=== PATIENT | female | born 1990 | race Caucasian/White ===

== ENCOUNTER → 2024-08-05 15:12 | Outpatient (BNVA) | payer OTHER, SELFPAY | PROVIDERS: PCP Nurse Practitioner Family; Visit Provider Surgery ==

== ENCOUNTER 2024-08-21 08:12 | Outpatient (AMB) | payer OTHER, SELFPAY ==
--- NOTE | 2024-08-21 11:52 | A.OFFVIS_ITS ---
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 Allergies No Known Allergies Allergy (Verified 08/21/24 11:53) Medication List - Last Reconciled 08/21/24 by Tobi Curtis MD acetaminophen 1,000 mg PO Q6H PRN cyclobenzaprine 10 mg PO BEDTIME doxylamine succinate 25 mg PO BEDTIME PRN ibuprofen 800 mg PO Q8H medroxyprogesterone 10 mg PO DAILY metoprolol succinate ER 100 mg PO DAILY omeprazole 40 mg PO DAILY rizatriptan 5 mg PO Q2-4H PRN HPI 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: Details: Start time: 11.47am, End time: 12.32pm ?I spent 40 minutes speaking with the patient on the phone plus an additional 5 minutes reviewing and updating records for a total of 45 minutes HPI Comments Details: Previous weight loss efforts: RDs, [facility] program Wakes up: 7am, Sleeps: 8.30pm Breakfast: 8am ([employer] egg sandwich) Lunch: 12.30pm ([employer] shake) Dinner: 5.30pm (steak, vegetables, potatoes, rice) Snacks: 7pm (cookies, ice cream) Exercise: has home stationary bike Beverages: Coffee (12oz from [employer] with creamer), tea: none, soda: none (used to), juice: none, ETOH: none PFSH Medical History (Updated 08/21/24 @ 11:57 by Tobi Curtis MD) PCOS (polycystic ovarian syndrome) DJD (degenerative joint disease) Scoliosis Hypertension Migraines GERD (gastroesophageal reflux disease) Morbid obesity Surgical History (Updated 08/21/24 @ 11:57 by Tobi Curtis MD) Hx of dilation and curettage Hx of section Hx of spinal fusion Family History (Updated 08/05/24 @ 15:45 by Emma Hernandez CMA) Mother No problems noted. Father No problems noted. Social History (Updated 08/05/24 @ 15:45 by JAY JAY Holguin Alcohol intake: never Patient Tobacco Use Status: Never used Tobacco Telehealth Telehealth Telehealth Platform: Telephone Location of provider rendering services: practice address Location of patient: address on file Patient Identification confirmed using: Name, : Yes Telehealth method: voice only Patient verbally consented to treatment: Yes Patient verbally consented to billing insurance company: Yes Patient informed of any privacy concerns related to visit: Yes Minutes spent on Phone/Video with Pt.: 45 Assessment & Plan Assessment & Plan (1) Morbid obesity: Code(s): E66.01 - Morbid (severe) obesity due to excess calories Category: Medical Plan: 1.? Plan for lap sleeve gastrectomy. If diaphragmatic or ventral hernias are present at time of surgery, these will be repaired laparoscopically as well. I emphasized the importance of close follow-up, adherence to instructions and good communication. The surgery does not replace the need to change your lifestlyle which is the cause of the obesity problem. The surgery provides the motivation to try again to change your lifestyle, it reduces the appetite and make the transition to a better lifestyle easier and doubles the amount of weight you would lose compared to doing the lifestyle change without the surgery. You will need to be on a liquid diet with protein shakes for 2 weeks before surgery to maximize weight loss and boost your nutritional status to recover better from surgery and also for the first two weeks after surgery to let the stomach heal before we introduce other foods. After the first 2 weeks we will introduce protein bars and soft foods like scrambled eggs, cottage cheese and yogurt and after the 6th week will introduce meat, fish and cooked vegetables in small amounts. Over time you should be able to eat everything in small amounts. Side effects like nausea, vomiting, heartburn or abdominal pain are not common in the practice unless you are not following in the practice. This operation requires lifetime commitment to following in our practice and communication with me. You will much less weight and experience side effects if you don?t communicate or not following in the practice. Complications are rare and in our practice is about 1/10 of the national average. However, you can develop bleeding that may require transfusion (hasn?t happened for year in the practice), you may from complications (we did not have any deaths in the practice) and infections. Infections are usually a result of breakdown in communication or not understanding or following directions correctly. They are difficult to treat, they can happen during the first 6 weeks, they may require to be in the hospital for weeks or even months, not being able to eat by mouth and you may have drains and surgeries to try and correct the issue. Other risks and complications include possible conversion to an open procedure, leaks, small bowel obstruction, blood clots, cardiac, or pulmonary complications, as oysterman complications such as ulcers, insufficient weight loss and vitamin deficiencies. 2. You will receive a link of our software elza to generate an individualized nutritional and exercise plan specific for you. Please send me a screenshot of the plans you will generate Meal to include lean meat (beef, fish, pork, turkey, chicken), or yoruba yogurt, or egg whites, or beans with a salad with olive oil and fruits (berries, pears, apples, kiwi). Avoid salt, breads, potatoes, rice, pasta, desserts. ?3. If you choose shakes, each shake would be drunk slowly, like coffee in a period of 2 hours. ?4. If you choose bars, cut each bar in 4 pieces and eat each piece in 30min ?to make each bar last 2 hours. ?5. I emphasized the importance of measuring accurately the food portion and measure it when serving the food in plate ?6. The meal portions include a specific number of forks of meat and salad. You always eat the meat portion but you can replace up to half of salad/vegetables portion with rice, potatoes or pasta, or a fruit ?if you like. The less you do it the better weight loss will be. ?7. One full-size fork is what it can be scooped on the fork without falling aside and not what can be bit with the fork. Use regular forks like those you find in a typical restaurant. ?8.? Please buy the body composition scale we discussed and send me weight measurements as soon as possible and then once a week. Always include your diet and exercise plan. 9. The best choice would be to purchase a stationary bike, elliptical or treadmill at home that can track calories. Let me know if you do so I can give you an exercise plan. 9. The best exercise choice would be to use your treadmill at home that can track calories. You can create and exercise plan with the [employer] elza. ?10.?It is important of avoiding and for at least 18 months postoperatively and has been discussed at the infosession. ?11. Goal is to lose at least 1.5-2lbs per week ?12. Goal to lose 10% of your weight before surgery, which is about 33lbs. Ultimate weight goal: 300lbs before surgery 13. Please follow the diet plan exactly without any change. If you don't like something about the plan or you feel hungry you need to communicate with me so I can help you revise the plan. You should not change the plan yourself. 14. To be scheduled for EGD due to the history of sleeve gastrectomy and anemia. The possibility of biopsies was discussed. Patient needs to avoid use of NSAIDs and aspirin for 1 week prior to EGD. You must be on liquids only the day before your endoscopy. Risks of perforation and bleeding was discussed with the patient. This will be an outpatient procedure with IV sedation. Orders: Orders Insulin Today E28.2 - Polycystic ovarian syndrome, E66.01 - Morbid (severe) obesity due to excess calories, I10 - Essential (primary) hypertension, K21.9 - Gastro-esophageal reflux disease without esophagitis Hemoglobin A1c Today E28.2 - Polycystic ovarian syndrome, E66.01 - Morbid (severe) obesity due to excess calories, I10 - Essential (primary) hypertension, K21.9 - Gastro-esophageal reflux disease without esophagitis H Pylori Breath Test Today E28.2 - Polycystic ovarian syndrome, E66.01 - Morbid (severe) obesity due to excess calories, I10 - Essential (primary) hypertension, K21.9 - Gastro-esophageal reflux disease without esophagitis Complete Blood Count Auto Diff Today E28.2 - Polycystic ovarian syndrome, E66.01 - Morbid (severe) obesity due to excess calories, I10 - Essential (primary) hypertension, K21.9 - Gastro-esophageal reflux disease without esophagitis Lipid Panel Today E28.2 - Polycystic ovarian syndrome, E66.01 - Morbid (severe) obesity due to excess calories, I10 - Essential (primary) hypertension, K21.9 - Gastro-esophageal reflux disease without esophagitis IRON PROFILE Today E28.2 - Polycystic ovarian syndrome, E66.01 - Morbid (severe) obesity due to excess calories, I10 - Essential (primary) hypertension, K21.9 - Gastro-esophageal reflux disease without esophagitis Vitamin B12 and Folate Today E28.2 - Polycystic ovarian syndrome, E66.01 - Morbid (severe) obesity due to excess calories, I10 - Essential (primary) hypertension, K21.9 - Gastro-esophageal reflux disease without esophagitis C Reactive Protein Today E28.2 - Polycystic ovarian syndrome, E66.01 - Morbid (severe) obesity due to excess calories, I10 - Essential (primary) hypertension, K21.9 - Gastro-esophageal reflux disease without esophagitis Vitamin A Today E28.2 - Polycystic ovarian syndrome, E66.01 - Morbid (severe) obesity due to excess calories, I10 - Essential (primary) hypertension, K21.9 - Gastro-esophageal reflux disease without esophagitis TSH reflex Free T4 Today E28.2 - Polycystic ovarian syndrome, E66.01 - Morbid (severe) obesity due to excess calories, I10 - Essential (primary) hypertension, K21.9 - Gastro-esophageal reflux disease without esophagitis US abdomen comp w elastography Today E28.2 - Polycystic ovarian syndrome, E66.01 - Morbid (severe) obesity due to excess calories, I10 - Essential (primary) hypertension, K21.9 - Gastro-esophageal reflux disease without esophagitis XR chest 2V Today E28.2 - Polycystic ovarian syndrome, E66.01 - Morbid (severe) obesity due to excess calories, I10 - Essential (primary) hypertension, K21.9 - Gastro-esophageal reflux disease without esophagitis Comprehensive Met. Panel Today E28.2 - Polycystic ovarian syndrome, E66.01 - Morbid (severe) obesity due to excess calories, I10 - Essential (primary) hypertension, K21.9 - Gastro-esophageal reflux disease without esophagitis Zinc Today E28.2 - Polycystic ovarian syndrome, E66.01 - Morbid (severe) obesity due to excess calories, I10 - Essential (primary) hypertension, K21.9 - Gastro-esophageal reflux disease without esophagitis Vitamin B1 Today E28.2 - Polycystic ovarian syndrome, E66.01 - Morbid (severe) obesity due to excess calories, I10 - Essential (primary) hypertension, K21.9 - Gastro-esophageal reflux disease without esophagitis Ferritin Today E28.2 - Polycystic ovarian syndrome, E66.01 - Morbid (severe) obesity due to excess calories, I10 - Essential (primary) hypertension, K21.9 - Gastro-esophageal reflux disease without esophagitis Vitamin D 25-OH Total Today E28.2 - Polycystic ovarian syndrome, E66.01 - Morbid (severe) obesity due to excess calories, I10 - Essential (primary) hypertension, K21.9 - Gastro-esophageal reflux disease without esophagitis ECG 12 lead EKG Today E28.2 - Polycystic ovarian syndrome, E66.01 - Morbid (severe) obesity due to excess calories, I10 - Essential (primary) hypertension, K21.9 - Gastro-esophageal reflux disease without esophagitis FL upper GI w air Today E28.2 - Polycystic ovarian syndrome, E66.01 - Morbid (severe) obesity due to excess calories, I10 - Essential (primary) hypertension, K21.9 - Gastro-esophageal reflux disease without esophagitis Referrals Behavioral Health Referral E28.2 - Polycystic ovarian syndrome, E66.01 - Morbid (severe) obesity due to excess calories, I10 - Essential (primary) hypertension, K21.9 - Gastro-esophageal reflux disease without esophagitis Nutrition/Dietitian Referral E28.2 - Polycystic ovarian syndrome, E66.01 - Morbid (severe) obesity due to excess calories, I10 - Essential (primary) hypertension, K21.9 - Gastro-esophageal reflux disease without esophagitis
[2024-08-21 12:06] VITALS: BMI 49.1
== END 2024-08-21 12:33 | disposition home or self-care (01) ==
LOC: HO.HBS 08:12
PROVIDERS: PCP Nurse Practitioner Family; Visit Provider Surgery
DX: E66.01 Morbid (severe) obesity due to excess calories (principal)
CPT/HCPCS: 99204

== ENCOUNTER → 2024-08-21 08:12 | Outpatient (BNVA) | payer OTHER, SELFPAY | PROVIDERS: PCP Nurse Practitioner Family; Visit Provider Surgery ==

== ENCOUNTER 2024-08-24 08:18 | Outpatient (REF) | payer OTHER, SELFPAY ==
--- NOTE | ~2024-08-24 | XR_ITS ---
CLINICAL HISTORY: E66.01 - Morbid (severe) obesity due to excess calories 2 view chest x-ray Comparison: None provided Findings: The lungs are clear. Heart size is normal. Moderate scoliosis. A spinal fusion nereyda is present. There is no acute fracture. IMPRESSION: 1. No acute findings. This document has been electronically signed by: Ching Meza MD on 08/25/2024 14:47:06
--- NOTE | 2024-08-24 08:26 | ECG_ITS ---
Test Reason : MOR OBS Blood Pressure : */* mmHG Vent. Rate : 79 BPM Atrial Rate : 79 BPM P-R Int : 172 ms QRS Dur : 104 ms QT Int : 408 ms P-R-T Axes : 26 8 26 degrees QTcB Int : 467 ms Normal sinus rhythm Cannot rule out Inferior infarct , age undetermined Borderline ECG No previous ECGs available Referred By: Tobi Curtis Electronically Signed By: SHAVON SAMPSON
[2024-08-24 08:45] LABS: MANUAL DIFF FLAG NO
[2024-08-24 09:06] LABS: Basophils Percent Auto 0.1 % (0-2); Eosinophils Absolute Auto 0.1 X10*3/uL (0.0-0.4); Eosinophils Percent Auto 1.3 % (0-4); Hematocrit 39.7 % (37.0-47.0); Hemoglobin 12.3 g/dl (12.0-16.0); Imm Gran Abs Auto 0.02 X10*3/uL (0.00-0.03); Imm Gran Pct Auto 0.3 % (0.0-0.4); Lymphocytes Absolute Auto 1.8 X10*3/uL (1.2-4.9); Lymphocytes Percent Auto 26.3 % (20-40); Mean Corpuscular Hemoglobin 25.6 pg (27.0-33.0); Mean Corpuscular Volume 82.5 fL (80.0-98.0); Mean Platelet Volume 10.3 fL (9.4-12.3); Monocytes Absolute Auto 0.4 X10*3/uL (0.1-1.2); Monocytes Percent Auto 5.6 % (2-11); Neutrophils Absolute Auto 4.7 x10*3/uL (2.0-8.3); Neutrophils Percent Auto 66.4 % (45-73); Platelet Count 265 X10*3/uL (160-400); Red Blood Count 4.81 X10*6/uL (4.20-5.50)
[2024-08-24 09:17] LABS: Estimated Average Glucose 103 mg/dL; Hemoglobin A1c % 5.2 % (<6.0)
[2024-08-24 10:11] LABS: Alanine Aminotransferase 60 U/L (0-31); Albumin Level 4.6 g/dL (3.5-5.0); Alkaline Phosphatase 82 U/L (39-117); Anion Gap 12 (12-20); Aspartate Amino Transferase 33 U/L (5-31); Bilirubin Total 0.7 mg/dL (0.0-1.0); Blood Urea Nitrogen 16 mg/dL (9-16); C Reactive Protein 1.15 mg/dL (< or = 0.50); Calcium 9.3 mg/dL (8.4-10.2); Carbon Dioxide 24 mmol/L (22-29); Chloride 106 mmol/L (96-108); Cholesterol 170 mg/dL (<200); Estimated Glomerular Filt Rate > 60; Glucose Random 91 mg/dL (60-115); HDL Cholesterol 31 mg/dL (>40); Iron 107 mcg/dL (30-160); LDL Cholesterol Calculated 111 mg/dL (<100); Percent Iron Saturation 32 % (15-50); Potassium 4.3 mmol/L (3.3-5.1); Sodium 138 mmol/L (135-145); Total Iron Binding Capacity 332 mcg/dL (228-428); Total Protein 8.1 g/dL (6.5-8.0); Triglycerides 141 mg/dL (<150); Unsaturated Iron Binding 225 ug/dL
[2024-08-24 10:18] LABS: Folate 9.3 ng/mL (> or = 4.0); Vitamin B12 347 pg/mL (200-900)
[2024-08-24 10:25] LABS: Ferritin 48 ng/mL (10-122); TSH reflex Free T4 0.93 uIU/mL (0.32-4.0); Vitamin D 25-OH Total 17.5 ng/mL (>30)
[2024-08-24 11:02] LABS: Insulin 25 uU/mL (2-29)
[2024-08-27 04:49] LABS: Zinc 69 mcg/dL (60-130)
[2024-08-28 16:14] LABS: Vitamin B1 9 nmol/L (8-30)
[2024-08-29 17:33] LABS: Vitamin A 53 mcg/dL (38-98)
== END 2024-08-24 08:19 | disposition home or self-care (01) ==
LOC: HO.XRAY 08:18
PROVIDERS: PCP Nurse Practitioner Family; Visit Provider Surgery
DX: E66.01 Morbid (severe) obesity due to excess calories (principal); E28.2 Polycystic ovarian syndrome; I10 Essential (primary) hypertension; K21.9 Gastro-esophageal reflux disease without esophagitis
CPT/HCPCS: 36415; 71046; 80053; 80061; 82306; 82607; 82728; 82746; 83036; 83525; 83540; 84425; 84443; 84590; 84630; 85025; 86140; 93005

== ENCOUNTER → 2024-08-24 08:26 | Outpatient (BNV) | payer OTHER, SELFPAY | PROVIDERS: PCP Nurse Practitioner Family; Visit Provider Internal Medicine | DX: Z13.6 Encounter for screening for cardiovascular disorders (principal) | CPT/HCPCS: 93010 ==

== ENCOUNTER → 2024-08-24 08:43 | Outpatient (BNV) | payer OTHER, SELFPAY | PROVIDERS: PCP Nurse Practitioner Family; Visit Provider Radiology Diagnostic Radiology | DX: E66.01 Morbid (severe) obesity due to excess calories (principal) | CPT/HCPCS: 71046 ==

== ENCOUNTER 2024-09-03 11:56 | Day surgery (SDC) | payer OTHER, SELFPAY ==
[2024-09-01 15:18] VITALS: BMI 49.1
[2024-09-03 12:15] VITALS: BMI 46.5
[2024-09-03 12:20] LABS: UPreg QC Valid YES
[2024-09-03 12:23] VITALS: BP 151/94; PULSE 101; RESP 20; TEMP 36.1; O2SAT 100
[2024-09-03] MEDS: Lactated Ringers 1,000 ML 100 ML IVCONT (12:28)
--- NOTE | 2024-09-03 12:40 | HO.ANESPROP2 ---
Documented by User: Stacey Florez NP 09/01/24 13:09 HPI - Anesthesia Eval Consult details Narrative: 33yo F for Upper Endoscopy BMI 49 PMFSH Active Problems Active Problems: All Active Problems Abnormal EKG (Acute) Vitamin B12 deficiency (Acute) Vitamin D deficiency (Acute) PCOS (polycystic ovarian syndrome) (Acute) DJD (degenerative joint disease) (Acute) Scoliosis (Acute) Hypertension (Acute) Migraines (Acute) GERD (gastroesophageal reflux disease) (Acute) Morbid obesity (Acute) Past Medical History Medical History (Updated 08/29/24 @ 09:29 by Tobi Curtis MD) PCOS (polycystic ovarian syndrome) DJD (degenerative joint disease) Scoliosis Hypertension Migraines GERD (gastroesophageal reflux disease) Morbid obesity Family History Family History (Updated 08/05/24 @ 15:45 by Emma Hernandez CMA) Mother No problems noted. Father No problems noted. Surgical History Surgical History (Updated 08/21/24 @ 11:57 by Tobi Curtis MD) Hx of dilation and curettage Hx of section Hx of spinal fusion Social History Social History (Updated 08/05/24 @ 15:45 by Emma Hernandez CMA) Alcohol intake: never Patient Tobacco Use Status: Never used Tobacco Use of substances other than those prescribed or required for medical reasons: No Advance Directives: No Advance Directives Information Provided: Yes Meds Allergies Allergy/AdvReac Type Severity Reaction Status Date / Time No Known Allergies Allergy Verified 08/21/24 11:53 Home Medications ?Medication ?Instructions ?Recorded ?Confirmed ?Last Taken ?Type acetaminophen 500 mg/15 mL oral 1,000 mg PO Q6H PRN Pain 08/05/24 09/01/24 Unknown History liquid cyclobenzaprine 10 mg tablet 10 mg PO BEDTIME 08/05/24 09/01/24 Unknown History doxylamine succinate 25 mg tablet 25 mg PO BEDTIME PRN Insomnia 08/05/24 09/03/24 1 Day Ago History ~09/02/24 ibuprofen 800 mg tablet 800 mg PO Q8H 08/05/24 09/03/24 1 Month Ago History ~08/04/24 medroxyprogesterone 10 mg tablet 10 mg PO DAILY 08/05/24 09/01/24 Unknown History metoprolol succinate 100 mg 100 mg PO DAILY 08/05/24 09/03/24 1 Day Ago History tablet,extended release 24 hr ~09/02/24 omeprazole 40 mg capsule,delayed 40 mg PO DAILY 08/05/24 09/03/24 1 Day Ago History release ~09/02/24 rizatriptan 5 mg tablet 5 mg PO Q2-4H PRN Migraine Headache 08/05/24 09/01/24 Unknown History Assessment and Plan Assessment Anesthesia Assessment: Chart Reviewed Documented by User: Tanya Briceño DO 09/03/24 12:46 HPI - Anesthesia Eval Consult details Narrative: 33yo F for Upper Endoscopy BMI 46 PMFSH Past Medical History Medical History (Updated 08/29/24 @ 09:29 by Tobi Curtis MD) PCOS (polycystic ovarian syndrome) DJD (degenerative joint disease) Scoliosis Hypertension Migraines GERD (gastroesophageal reflux disease) Morbid obesity Family History Family History (Updated 08/05/24 @ 15:45 by Emma Hernandez CMA) Mother No problems noted. Father No problems noted. Family history of problems with anesthesia: No Surgical History Surgical History (Updated 08/21/24 @ 11:57 by Tobi Curtis MD) Hx of dilation and curettage Hx of section Hx of spinal fusion History of Problems with Anesthesia: No Social History Social History (Updated 08/05/24 @ 15:45 by Emma Hernandez CMA) Alcohol intake: never Patient Tobacco Use Status: Never used Tobacco Use of substances other than those prescribed or required for medical reasons: No Advance Directives: No Advance Directives Information Provided: Yes Meds Allergies Allergy/AdvReac Type Severity Reaction Status Date / Time No Known Allergies Allergy Verified 08/21/24 11:53 Home Medications ?Medication ?Instructions ?Recorded ?Confirmed ?Last Taken ?Type acetaminophen 500 mg/15 mL oral 1,000 mg PO Q6H PRN Pain 08/05/24 09/01/24 Unknown History liquid cyclobenzaprine 10 mg tablet 10 mg PO BEDTIME 08/05/24 09/01/24 Unknown History doxylamine succinate 25 mg tablet 25 mg PO BEDTIME PRN Insomnia 08/05/24 09/03/24 1 Day Ago History ~09/02/24 ibuprofen 800 mg tablet 800 mg PO Q8H 08/05/24 09/03/24 1 Month Ago History ~08/04/24 medroxyprogesterone 10 mg tablet 10 mg PO DAILY 08/05/24 09/01/24 Unknown History metoprolol succinate 100 mg 100 mg PO DAILY 08/05/24 09/03/24 1 Day Ago History tablet,extended release 24 hr ~09/02/24 omeprazole 40 mg capsule,delayed 40 mg PO DAILY 08/05/24 09/03/24 1 Day Ago History release ~09/02/24 rizatriptan 5 mg tablet 5 mg PO Q2-4H PRN Migraine Headache 08/05/24 09/01/24 Unknown History Exam Exam Date and Time: 09/03/24 1240 Height,Weight and Vital Signs: Height 5 ft 9 in Weight 142.8 kg Vital Signs Temperature 97 F 09/03/24 12:23 Pulse Rate 101 H 09/03/24 12:23 Respiratory Rate 20 09/03/24 12:23 Blood Pressure 151/94 H 09/03/24 12:23 Pulse Oximetry 100 09/03/24 12:23 Oxygen Delivery Method Room Air 09/03/24 12:23 Temperature 97 F 09/03/24 12:23 Pulse Rate 101 H 09/03/24 12:23 Respiratory Rate 20 09/03/24 12:23 Blood Pressure 151/94 H 09/03/24 12:23 Pulse Oximetry 100 09/03/24 12:23 Oxygen Delivery Method Room Air 09/03/24 12:23 Airway Mallampati Class: II TM Dist: <=3cm Neck ROM: Full Loose/Missing/Broken Teeth: No (patient denies any loose or broken teeth) Heart: S1S2 Lungs: CTAB Assessment and Plan Assessment Anesthesia Assessment: Anesthesia Plan Discussed and Chart Reviewed Final Anesthetic Review Family History of Problems with Anesthesia: No History of Problems with Anesthesia: No NPO: Yes ASA Class: III Final Preanesthetic Review: No Changes in Pt Med Stat, Meds/Allgs Chart Reviewed, Consent Obtained/Reviewed and Anes Risks/Benef Reviewed Patient Risk: Intermediate Procedure Risk: Low Anesthetic Plan Anesthetic Plan: MAC: and Agree w/ Assess. and Plan Disposition: Standard PACU
--- NOTE | 2024-09-03 13:36 | MHC.SHP ---
Pre-Procedural Eval Section A - 24 Hr Update-Section A only Date of Service: 09/03/24 The patient is an INPATIENT: No The patient has been examined within 24 hours of the surgical procedure. The History & Physical has been completed within 30 days and I have reviewed it.: Yes Section B - Complete if H&P > 30 days Chief Complaint: Morbid (severe) obesity due to excess calories Details of Present Illness: GERD Relevant Family History (Specify if Yes): No Relevant Social History: None Present Medications: None Medical History: No relevant PMH History of Previous Operations: No relevant previous surgery Allergies: Allergies Allergy/AdvReac Type Severity Reaction Status Date / Time No Known Allergies Allergy Verified 08/21/24 11:53 Review of Systems Sugical H&P ROS: Negative: Constitution, Cardiovascular, Respiratory, Neurological, Psychiatric, Hem-Onc, Allergic/Immunologic, Gastrointestinal, Genitourinary, Musculoskeletal, Integumentary, Endocrine and Eyes/Ears/Nose/Throat Exam Surgical H&P Exam: Normal: HEENT, Normal: Heart, Normal: Lungs, Normal: Extremities, Normal: Abdomen, Normal: Skin and Normal: Neurological Plan Diagnosis/Plan: Unchanged (EGD to assess etiology of GERD. Risks of bleeding and perforation were discussed with the patient and she is in agreement with the plan.) I have reviewed the history and physical and performed a pertinent physical examination on my patient. No changes have occurred unless specified. Time Spent With Patient Time: Total time managing care of this patient today ____ minutes.
--- NOTE | 2024-09-03 13:39 | PM.OP ---
Brief Operative Note Date of Service: 09/03/24 Pre-op diagnosis: GERD Post-op diagnosis: same Procedure: PROCEDURE DATE: 09/03/2024 PREOPERATIVE DIAGNOSIS: GERD POSTOPERATIVE DIAGNOSIS: ?Same as above. Small diaphragmatic hernia PROCEDURE: [id number] with biopsies Surgeon: Lena Curtis M.D.. Ph.D. Tire Regrooving Machine Operator: None ? Anesthesia: IV sedation Estimated blood loss: ?Minimal FINDINGS AND PROCEDURE: ? OPERATIVE INDICATIONS: ?The patient is a 33 year old male known to me who is interested in bariatric surgery. The patient has GERD symptoms. Based on this information I recommended an upper endoscopy to evaluate the patient's symptoms. Risks and complications of the surgery were discussed with the patient in advance particularly the possibility of perforation or bleeding that may require surgical intervention. The patient understood the risks and was in agreement with the plan. ? PROCEDURE: After informed consent was obtained by the patient, the patient was ?transferred to the Operating Room and was placed in the supine position.? After successful induction of IV sedation, a mouth block was inserted and the patient was placed in the left lateral decubitus position. An upper endoscopy was performed next, the oropharynx and esophagus appeared within the normal limits. There was a small 2cm hiatal hernia. The z-line was smooth.. Two biopsies were obtained from the distal esophagus 2-3 cm proximal to the GE junction and two additional biopsies from the GE junction. The stomach was entered and it appeared to be of normal size. There was no gastritis. There was no stricture or ulcer. A biopsy was obtained from the gastric fundus and the antrum. No significant bleeding was noted from any of the biopsy sites. Retroflexion of the scope confirmed a normal GE junction. The scope was then advanced into the duodenum which appeared to be normal as well. At that point the duodenum ?and the stomach were decompressed and the scope was withdrawn from the patient's mouth. The patient extubated and was transferred in stable condition to the Recovery Room for further care. I was present and performed all steps of the procedure. There were no residents to assist with this case. Teofilo Curtis M.D., Ph.D. Surgeon: Tobi Curtis MD Anesthesia: MAC Was an Tire Regrooving Machine Operator used for this Procedure?: No Estimated blood loss (mL): 0 IV fluids (mL): 400 Urine output (mL): 0 (No Sullivan to record output) Pathology: other (1) antrum x1, 2) fundus x1, 3) GE junction x2, 4) distal esophagus x2) Condition: stable Disposition: PACU
[2024-09-03 14:00] VITALS: BP 126/74; PULSE 123; RESP 16; TEMP 36.3; O2SAT 99
[2024-09-03 14:17] VITALS: BP 111/63; PULSE 95; RESP 18; TEMP 36.3; O2SAT 100
== END 2024-09-03 14:35 | disposition home or self-care (01) ==
PROVIDERS: Nurse Practitioner; PCP Nurse Practitioner Family; Visit Provider Surgery
PROC: 0DJ08ZZ Inspection of Upper Intestinal Tract, Via Natural or Artificial Opening Endoscopic (ICD-10-PCS; CPT 43235; principal; 2024-09-03 15:40)
DX: K21.9 Gastro-esophageal reflux disease without esophagitis (principal); E66.01 Morbid (severe) obesity due to excess calories; Z68.42 Body mass index [BMI] 45.0-49.9, adult; K44.9 Diaphragmatic hernia without obstruction or gangrene; I10 Essential (primary) hypertension; E28.2 Polycystic ovarian syndrome; G43.909 Migraine, unspecified, not intractable, without status migrainosus; M19.90 Unspecified osteoarthritis, unspecified site; M41.9 Scoliosis, unspecified; Z79.1 Long term (current) use of non-steroidal anti-inflammatories (NSAID); Z79.899 Other long term (current) drug therapy; Z98.1 Arthrodesis status
CPT/HCPCS: 43239; 81025; 88305; 88313; 88342; J2704

== ENCOUNTER → 2024-09-03 11:56 | Outpatient (BNV) | payer OTHER, SELFPAY | PROVIDERS: PCP Nurse Practitioner Family; Visit Provider Surgery | DX: K44.9 Diaphragmatic hernia without obstruction or gangrene (principal) | CPT/HCPCS: 43239 ==

== ENCOUNTER 2024-09-17 08:11 | Outpatient (AMB) | payer OTHER, SELFPAY ==
--- NOTE | 2024-09-17 08:05 | A.OFFWM_ITS ---
Intake Intake Visit Reasons: TV BH Intake Allergies No Known Allergies Allergy (Verified 10/21/24 11:10) PFSH Medical History (Updated 10/23/24 @ 00:01 by Background Justin) Asthma Arthritis Back pain PCOS (polycystic ovarian syndrome) DJD (degenerative joint disease) Scoliosis Hypertension Migraines GERD (gastroesophageal reflux disease) Morbid obesity Surgical History (Updated 10/23/24 @ 00:01 by Background Dacar) S/P gastric sleeve procedure History of esophagogastroduodenoscopy (EGD) Hx of dilation and curettage Hx of section Hx of spinal fusion Family History Mother No problems noted. Father No problems noted. Social History Household Members: Spouse Housing: Apartment Are you a primary summer child caregiver to a significant other at home: No Do you presently have visiting nurse or other home services: No Alcohol intake: never Patient Tobacco Use Status: Never used Tobacco Behavioral Health Assessment Weight Management Therapy Therapy Notes Details The patient is a 33-year-old self-referred female presenting for an initial visit to complete a behavioral health assessment as part of a surgical weight loss program. 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 She consumes three structured meals per day but struggles with portion control and frequently experiences persistent hunger. She denies emotional or stress-related eating in adulthood but does recall eating out of boredom during childhood. In her youth, she participated in nutrition classes and weekly group meetings at [facility]. She has a significant family history of obesity; both parents and her sister underwent gastric bypass surgery. Notably, her mother due to post-surgical malnutrition. In adulthood, the patient trialed Wegovy but discontinued it due to side effects. Over the past decade, her weight has ranged between 275 and 348 lbs. The patient denies any history of mental health treatment, psychiatric hospit alizations, or behavioral health crises. She also denies any current or past suicidal ideation, suicide attempts, self-harm, or thoughts of harm to others. There is no reported history of substance use. She reports no current symptoms of emotional or stress-related eating. Results from the Binge Eating Scale (BES) indicate a low risk for binge eating behaviors, and PHQ scores are within normal limits, suggesting no current symptoms of depression. The mental status exam is unremarkable and within normal limits, indicating intact functioning. At this time, the patient is cleared from a behavioral health perspective for participation in the surgical weight loss program. Presenting Concerns Referral Source WMP-Provider. Reason for referral Completion of behavioral health assessment as part of process for weight-loss surgery. Precipitating Event Obesity Living Situation Current Living Situation Rent At risk of losing current housing? No Satisfied with current living situation? Yes Comments PT lives with her and children. Food/Weight/Diet Expectations of change PT started the program on 08/21/2024 at 332Lbs and her most recent weight as of 09/12/2024 was 305Lbs. Goal to lose 10% of your weight before surgery, which is about 33lbs. Ultimate weight goal: 300lbs before surgery. PT doesn't have a weight goal but she wants to be able to play with her kids, lessen her back pain and have a healthier life. PT is implementing the following: Current meal plan: 4 fairlife shakes at day. Exercise plan: 400 noel x 6 days at week. Scale: yes. Communication w/ provider: Saturdays. History/Relationship with food The patient reports enjoying three structured meals per day but struggles with portion control and frequently feels hungry. She denies emotional or stress-related eating in adulthood, though she recalls eating out of boredom during childhood. Example of meals before starting the program: Breakfast: DD or [employer]. Breakfast sandwich w/ hasbrowns and cofee. Lunch: SKIP - would have Snack-type stuff. Example: Trailmix over the course of 2 hours Dinner: Homemeade. big normal dinner car/meat/veggie, pasta dishes. Snacks: after dinner ice cream, oreos. Drinks/Liquids: Coffee: 1 med coffee from [employer] (cream, favor shot). Soda: 1 can at day at dinner. Tea: none. Juice: none. Energy Drinks: none. Water: don't like plain water - 40oz w/ crystal light. History/Relationship with weight The patient reports being overweight since childhood and does not recall weighing under 200 lbs, likely not since before age 8. She has a significant family history of obesity; both parents and her sister underwent gastric bypass surgery. Her mother due to malnutrition postoperatively. Over the past 10 years, the patient?s weight has ranged from a low of 275 lbs to a high of 348 lbs. History/Relationship with dieting As a child, the patient participated in nutrition classes and weekly group meetings at [facility]. In adulthood, she attempted pharmacologic weight management with Wegovy but discontinued use due to side effects. Binge Eating Do you frequently eat large amounts of food in short periods of time, not feeling physically hungry? No Do you feel out of control when you eat a large amount of food in a short period of time? Yes Do you eat large amounts of food rapidly and typically alone? No Night Eating Do you wake up at least once during the night to eat? No If you wake up in the night, do you find that it is necessary to eat something in order to fall back asleep? No Do you have little or no appetite in the morning and feel very hungry in the evening, often overeating between dinner and when you go to bed? No Social History Family history and relationship PT is 13 years ago, they have 3 daughters and they're 2, 4 and 7. Her is disabled so he stays at home with the kids when she works and the oldest is at school. Her mother 2 years ago, father alive, she has 2 siblings. PT reports she is close to her sister. 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 Developmental history and status None reported. Currently [facility]. Social support , an aunt, a close friend. Community support None. Confucianist/Spirituality None. Cultural/Ethnic information White . Legal Involvement and History Current or historical involvement with the legal system? None reported. Education Highest grade completed HS. Some college. Preferred learning style Learn by doing Currently enrolled in educational program? No Interested in further educational program? No Educational Interests/Skills cooking, baking. 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 ) Wants help to find employment? No Meaningful activities Cooking. Financial Situation Describe current financial situation Comfortable and Occasional struggle Financial assistance? None Service Service? No Mental Health and Addiction Treatment Current/Past substance abuse? No Comments Alcohol: Rarely. Last time over 4 years. Cigarettes/Tobacco: None Cannabis/Edibles: None. Current/Past addictive behavior concerns? No Psychiatric history PT denies ever been in counseling, or any type of treatment such as crisis or inpatient. There is no history and/or current concern about SI/SA and self-harm or other harm. Medical and Physical Health Summary Additional Medical History not covered in history None reported Sexual History concerns None reported Physical exam in the last year? Yes Pain Screening Current pain? Yes Pain in the last few months? Yes Comments Daily pain on back due to scoliosis. She had a surgery. It varies from burning to aching pain. Usually worse by the end of the day. Medications Is the patient compliant with medications? Yes Does the patient have Bunch Guardian in place? Not applicable Does the patient use complimentary health approaches? No Trauma/Abuse History History of trauma? No Questionnaires PHQ-9 Over the last 2 weeks, how often have you been bothered by any of the following problems? 1. Little interest or pleasure in doing things: not at all 2. Feeling down, depressed, or hopeless: several days 3. Trouble falling or staying asleep, or sleeping too much: several days ( staying asleep) 4. Feeling tired or having little energy: more than half the days 5. Poor appetite or overeating: not at all 6. Feeling bad about yourself - or that you are a failure or have let yourself or your family down: not at all 7. Trouble concentrating on things, such as reading the newspaper or watching television: not at all 8. Moving or speaking so slowly that other people could have noticed. Or the opposite - being so fidgety or restless that you have been moving around a lot more than usual: not at all 9. Thoughts that you would be better off or of hurting yourself in some way: not at all Total score: 4 Depression Screening Interpretation: Negative (Previous score from 08/05/2024 was 14.) Depression Screening Done: Yes 50484 - PHQ-9 Billing: Yes Source: Developed by Drs. Carlyle L. ChachoSandy sesay, Tod Sunshine and colleagues, with an educational alexa from [employer]. Binge Eating Scale Group 1 A. I don't feel self-conscious about my wt. or body size when I'm with others. B. I feel concerned about how I look to others, but it normally does not make me fell disappointed with myself C. I do get self-conscious about my appearance and wt. which makes me feel disappointed in myself. D. I feel very self-conscious about my wt. and frequently I feel intense shame and disgust for myself. I try to avoid social contacts because of my self- consciousness. Response Group 1: D Group 2 A. I don't have any difficulty eating slowly in the proper manner. B. Although I seem to gobble down foods, I don't end up feeling stuffed because of eating to much. C. At times, I tend to eat quickly and then, I feel uncomfortably full afterwards. D. I have the habit of bolting down my food, without really chewing it. When this happens I usually feel uncomfortably stuffed because I've eaten to much. Response Group 2: A Group 3 A. I feel capable to control my eating urges when I want to. B. I feel like I have failed to control my eating more than the average person. C. I feel utterly helpless when it comes to feeling in control of my eating urges. D. Because I feel so helpless about controlling my eating I have become very desperate about trying to get control. Response Group 3: B Group 4 A. I don't have the habit of eating when I'm bored. B. I sometimes eat when I'm bored, but often I'm able to get busy and get my mind off food. C. I have a regular habit of eating when I'm bored, but occasionally, I can use some other activity to get my mind off eating. D. I have a strong habit of eating when I'm bored. Nothing seems to help me breath the habit. Response Group 4: A Group 5 A. I'm usually physically hungry when I eat something. B. Occasionally, I eat something on impulse even though I really am not hungry. C. I have the regular habit of eating foods, that I might not really enjoy, to satisfy a hungry feeling even though physically, I don't need the food. D. Although I'm not physically hungry, I get a hungry feeling in my mouth that only seems to be satisfied when I eat a food, like sandwich, that fills my mouth. Sometimes, when I eat the food to satisfy my mouth hunger, I then spit the food out so I won't gain weight. Response Group 5: A Group 6 A. I don't feel any guilt or self-hate after I overeat. B. After I overeat, occasionally I feel guilt or self-hate. C. Almost all the time I experience strong guilt or self-hate after I overeat. Response Group 6: B Group 7 A. I don't lose total control of my eating when dieting even after periods when I overeat. B. Sometimes when I eat a forbidden food on a diet, I feel like I blew it and eat even more. C. Frequently, I have the habit of saying to myself, I've blown it now, why not go all the way, when I overeat on a diet. When that happens I eat more. D. I have a regular habit of starting a strict diets for myself but I break the diets by going on an eating binge. My life seems to be either a feast or famine. Response Group 7: C Group 8 A. I rarely eat so much food that I feel uncomfortably stuffed afterwards. B. Usually about once a month, I each such a quantity of food, I end up feeling very stuffed. C. I have regular periods during the month when I eat large amounts of food, either at mealtime or at snacks. D. I eat so much food that I regularly feel quite uncomfortable after eating and sometimes a bit nauseous. Response Group 8: C Group 9 A. My level of calorie intake does not go up very high or go down very low on a regular basis. B. Sometimes after I overeat, I will try to reduce my caloric intake to almost nothing to compensate for the excess calories I've eaten. C. I have a regular habit of overeating during the night. It seems that my routine is not to be hungry in the morning but overeat in the evening. D. In my adult years, I have had week-long periods where I practically starve myself. This follows periods when I overeat. It seems I live a life of either feast or famine. Response Group 9: D Group 10 A. I usually am able to stop eating when I want to. I know when enough is enough. B. Every so often, I experience a compulsion to eat which I can't seem to control. C. Frequently, I experience strong urges to eat which I seem unable to control, but at other times I can control my eating urges. D. I feel incapable of controlling urges to eat. I have a fear of not being able to stop eating voluntarily. Response Group 10: C Group 11 A. I don't have any problem stopping eating when I feel full. B. I usually can stop eating when I feel full but occasionally overeat leaving me feeling uncomfortably stuffed. C. I have a problem stopping eating once I start and usually I feel uncomfortably stuffed after I eat a meal. D. Because I have a problem not being able to stop eating when I want, I sometimes have to induce vomiting to relieve my stuffed feeling. Response Group 11: B Group 12 A. I seem to eat just as much when I'm with others, Family social gatherings as when I'm by myself. B. Sometimes, when I'm with other persons, I don't eat as much as I want to eat because I'm self-conscious about my eating. C. Frequently, I eat only a small amount of food when others are present, because I'm very embarrassed about my eating. D. I feel so ashamed about overeating that I pick times to overeat when I know no one will see me. I feel like a closet eater. Response Group 12: C Group 13 A. I eat three meals a day with only an occasional between meal snack. B. I eat 3 meals a day, but I also normally snack between meals. C. When I am snacking heavily, I get in the habit of skipping regular meals. D. There are regular periods when I seem to be continually eating, with no planned meals. Response Group 13: A Group 14 A. I don't think much about trying to control unwanted eating urges. B. At least some of the time, I feel my thoughts are pre-occupied with trying to control my eating urges. C. I feel that frequently I spend much time thinking about how much I ate or about trying not to eat anymore. D. It seems to me that most of my waking hours are pre-occupied by thoughts about eating or not eating. I feel like I'm constantly struggling not to eat. Response Group 14: C Group 15 A. I don't think about food a great deal. B. I have strong craving for food but they last only for brief periods of time. C. I have days when I can't seem to think about anything else but food. D. Most of my days seem to be pre-occupied with thoughts about food. I feel like I live to eat. Response Group 15: C Group 16 A. I usually know whether or not I'm physically hungry. I take the right portion of food to satisfy me. B. Occasionally, I feel uncertain about knowing whether or not I'm physically hungry. A these times it's hard to know how much food I should take to satisfy m e. C. Even though I might know how many calories I should eat, I don't have any idea what is a normal amount of food for me. Response Group 16: B Binge Eating Score: 22 Score less than 17 Minimal Risk Score between 18-26 Moderate Risk Score between 27-46 High Risk Assessment & Plan Assessment & Plan (1) Adjustment disorder: Code(s): F43.20 - Adjustment disorder, unspecified (2) Pre-bariatric surgery psychological evaluation: Code(s): Z71.89 - Other specified counseling Plan The patient has been cleared from a behavioral health standpoint and can be submitted for insurance approval when ready. A follow-up behavioral health visit will be scheduled 1?4 weeks postoperatively to assess psychological adjustment and screen for any concerns. Next appointment: 1-4 Weeks Post-op. Telehealth Telehealth Telehealth Platform: [facility] Location of provider rendering services: other (Home office. [place], [place]) Location of patient: address on file Patient Identification confirmed using: Name, : Yes Telehealth method: voice only Patient verbally consented to treatment: Yes Patient verbally consented to billing insurance company: Yes Patient informed of any privacy concerns related to visit: Yes Minutes spent on Phone/Video with Pt.: 61 Coding Level of Care Code New Pt Tele Psy Diag Eval (90862) Patient Type New Diagnoses Adjustment disorder F43.20 Pre-bariatric surgery psychological evaluation Z71.89 Additional Codes PHQ-9 - 28840 - PHQ-9 Billing: Yes ([id number]) Time Spent (min) 61
== END 2024-09-17 09:16 | disposition home or self-care (01) ==
LOC: HO.HBST 08:11
PROVIDERS: PCP Nurse Practitioner Family; Visit Provider Counselor Mental Health
DX: F43.20 Adjustment disorder, unspecified (principal); Z71.89 Other specified counseling
CPT/HCPCS: 90837

== ENCOUNTER 2024-10-05 08:16 | Outpatient (AMB) | payer OTHER, SELFPAY ==
--- NOTE | 2024-10-04 23:12 | MHC.OFFVISWM ---
VS Expanded 10/04/24 23:23 Height 5 ft 9 in Weight 293 lb 4 oz BMI 43.3 Body Fat % 56.9 Body Fat Mass 166.9 Fat Free Mass 126.5 Visceral Fat Rating 23 Body Water % 29.6 Body Water Mass 86.8 Basal Metabolic Rate/Score 1,610 Intake Visit Reasons: TV Pre Op LSG 10/14/24 Allergies No Known Allergies Allergy (Verified 10/04/24 23:24) Medication List - Last Reconciled 10/04/24 by Tobi Curtis MD acetaminophen 1,000 mg PO Q6H PRN cholecalciferol (vitamin D3) 125 mcg PO DAILY cyclobenzaprine 10 mg PO BEDTIME doxylamine succinate 25 mg PO BEDTIME PRN ibuprofen 800 mg PO Q8H mecobalamin (vitamin B12) 1,000 mcg sublingual DAILY medroxyprogesterone 10 mg PO DAILY metoprolol succinate ER 100 mg PO DAILY omeprazole 40 mg PO DAILY ondansetron 4 mg PO Q12H pantoprazole 40 mg PO DAILY polyethylene glycol 3350 17 grams PO DAILY rizatriptan 5 mg PO Q2-4H PRN sucralfate 10 mL PO BID HPI HPI TV Pre Op LSG 10/14/24: Details: Start time: 10.00am, End time: 10.30am I spent 25 minutes speaking with the patient on the phone plus an additional 5 minutes reviewing and updating records for a total of 30 minutes HPI Comments Details: Overall weight loss: 39lbs, or 11.7% TBWL Is doing 2 Fairlife premade shakes and 3.5 Pure protein bars Exercise: bike for 333 noel x6/week [facility] Medical History (Updated 08/29/24 @ 09:29 by Tobi Curtis MD) PCOS (polycystic ovarian syndrome) DJD (degenerative joint disease) Scoliosis Hypertension Migraines GERD (gastroesophageal reflux disease) Morbid obesity Surgical History (Updated 10/02/24 @ 09:28 by Chitra Edward RN) History of esophagogastroduodenoscopy (EGD) Hx of dilation and curettage Hx of section Hx of spinal fusion Family History (Updated 08/05/24 @ 15:45 by Emma Hernandez CMA) Mother No problems noted. Father No problems noted. Social History (Updated 08/05/24 @ 15:45 by Emma Colon, PHYSICAL EDUCATION INSTRUCTOR) Alcohol intake: never Patient Tobacco Use Status: Never used Tobacco Physical Exam Vital Signs: BMI result Body Mass Index 43.3 Telehealth Telehealth Telehealth Platform: Telephone Location of provider rendering services: practice address Location of patient: address on file Patient Identification confirmed using: Name, : Yes Telehealth method: voice only Patient verbally consented to treatment: Yes Patient verbally consented to billing insurance company: Yes Patient informed of any privacy concerns related to visit: Yes Minutes spent on Phone/Video with Pt.: 30 Assessment & Plan Assessment & Plan (1) Morbid obesity: Code(s): E66.01 - Morbid (severe) obesity due to excess calories Category: Medical Plan: 1. Plan for lap sleeve gastrectomy including upper GI endoscopy. All tests has been completed and reviewed and the patient is cleared for the surgery. If diaphragmatic or ventral hernias are present at time of surgery, these will be repaired laparoscopically as well. The surgery does not replace the need to change your lifestlyle which is the cause of the obesity problem. The surgery provides the motivation to try again to change your lifestyle, it reduces the appetite and make the transition to a better lifestyle easier and doubles the amount of weight you would lose compared to doing the lifestyle change without the surgery. You will need to be on a liquid diet with protein shakes for 2 weeks before surgery to maximize weight loss and boost your nutritional status to recover better from surgery and also for the first two weeks after surgery to let the stomach heal before we introduce other foods. After the first 2 weeks we will introduce protein bars and soft foods like scrambled eggs, cottage cheese and yogurt and after the 6th week will introduce meat, fish and cooked vegetables in small amounts. Over time you should be able to eat everything in small amounts. Side effects like nausea, vomiting, heartburn or abdominal pain are not common in the practice unless you are not following in the practice. This operation requires lifetime commitment to following in our practice and communication with me. You will much less weight and experience side effects if you don?t communicate or not following in the practice. Complications are rare and in our practice is about 1/10 of the national average. However, you can develop bleeding that may require transfusion (hasn?t happened for year in the practice), you may from complications (we did not have any deaths in the practice) and infections. Infections are usually a result of breakdown in communication or not understanding or following directions correctly. They are difficult to treat, they can happen during the first 6 weeks, they may require to be in the hospital for weeks or even months, not being able to eat by mouth and you may have drains and surgeries to try and correct the issue. Other risks and complications include possible conversion to an open procedure, leaks, small bowel obstruction, blood clots, cardiac, or pulmonary complications, as halfway complications such as ulcers, insufficient weight loss and vitamin deficiencies. So far she has proven to be an excellent communicator and very compliant with all our directions accomplishing a great weight loss. I believe that she is an excellent candidate and she is ready. 2. Preop prescriptions were provided and explained the purpose of each one. Need to be purchased preop. Continue the Omeprazole for now. Pantoprazole, Sucralfate and Zofran are for after surgery. 3. Bowel prep: please do 7 packets of Miralax mixing each one with a an 8oz glass of water, crystal light, gatorade zero, or propel on 10/12/24 and the same amount on 10/13/24. The Miralax you begin with one packet at a time in 8oz water or crystal light, gatorade zero, or propel as early in the day as you can and you do them back to back until you finish them. Continue the protein shakes during the bowel prep. 4. Needs to purchase 1oz medicine cups . 5. Needs to purchase Children's liquid Tylenol for postop pain control. 6. She needs to stop the Ibuprofen, Medroxyprogesterone and Cyclobenzaprine as of Saturday10/05/24. Avoid aspirin, motrin, Advil, Aleve, Ibuprofen, Naproxyn. Tylenol is OK. Do not restart the ibuprofen and Cyclobenzaprine after surgery without asking me first. You can re-start the Medroxyprogesterone on 11/14/24. 7. She needs to purchase the Celebrate multivitamins from the hospital's gift shop. 8. Will do basic preop blood work-up any day between Saturday10/05/24 and Saturday10/09/24 fasting for 12 hours and is scheduled to see the Anesthesiologist prior to the day of surgery. 9. Importance of adherence to postop folllow-up and recommendations was underscored and she understands that. 10. Continue to avoid food and bars and continue with 3 premade FAIRLIFE protein shakes (8oz each and NOT the whole bottle) at 7am-9am, 10am-12pm and 1pm-3pm and TWO more Whole-bottle premade FAIRLIFE protein shakes at 4pm-6pm and 7pm-9pm 11. No soups, broths or V8 12. The patient's medical history has been reviewed and they are considered low risk for post op DVT and therefore DVT prophylaxis is not considered necessary. Travel after surgery was reviewed. The patient has not disclosed any travel plans during the first 30 days after surgery and they have been advised that within the first 30 days after surgery any bus, plane, train or car travel over 2 hours in duration is contraindicated due to the possibility of developing blood clots from immobility. Any travel, needs to include periods of ambulation of 10 minutes in duration every 2 hours. Patient was instructed to discuss any plans for travel during this period with their bariatric surgeon. 13. As of tomorrow, please check your blood pressure daily in the morning. If your blood pressure is: Below 120/70: do not take the Metoprolol 121/71 to 130/80: take HALF Metoprolol Over 131/81: take the whole Metoprolol 14. Please take at the day of surgery the following medications: ONLY the Metoprolol if the blood pressure that morning is high enough based on the parameters above. 15. Stop any control pills and don't use them for one month after surgery 16. Absolutely no smoking or vaping, or marijuana until the surgery and for at least the first 4 weeks. Only nicotine patches are allowed. 17. Send me weight measurements on Saturday10/11/24 and then on Saturday10/14/24, the day of surgery before you go to the hospital. 18. Avoid any steroids by mouth for any reason. Let me know if someone prescribes them to you 19. These instructions supersede anything else you read in the handbook, anything you watched in videos or classes or you were told by any other provider. If there is any conflict, you follow the above instructions and nothing else. Orders: Orders Complete Blood Count Auto Diff 10/04/24 E66.01 - Morbid (severe) obesity due to excess calories C Reactive Protein 10/04/24 E66. - Morbid (severe) obesity due to excess calories Lipid Panel 10/04/24 E6. - Morbid (severe) obesity due to excess calories Hemoglobin A1c 10/04/24 E6. - Morbid (severe) obesity due to excess calories Comprehensive Met. Panel 10/04/24 E66 - Morbid (severe) obesity due to excess calories Partial Thromboplastin Time 10/04/24 E66 - Morbid (severe) obesity due to excess calories Type and Screen 10/04/24 E608.02 - Morbid (severe) obesity due to excess calories Prothrombin Time INR 10/04/24 E66. - Morbid (severe) obesity due to excess calories TSH reflex Free T4 10/04/24 E608.02 - Morbid (severe) obesity due to excess calories Insulin 10/04/24 E66. - Morbid (severe) obesity due to excess calories Medications: New pantoprazole 40 mg PO DAILY 90 tabs 0RF K21.9 - Gastro-esophageal reflux disease without esophagitis ondansetron Only take one every 12 hours as needed if you have nausea 4 mg PO Q12H 20 tabs 0RF nausea and vomiting R11.0 - Nausea polyethylene glycol 3350 Mix each measuring cup with 8oz of water, Crystal light, or Gatorade zero, or Propel and do 7 measuring cups on 10/12/24 and another 7 measuring cups on 10/13/24 17 grams PO DAILY 238 grams 0RF Z01.818 - Encounter for other preprocedural examination sucralfate 10 mL PO BID 600 mL 2RF K21.9 - Gastro-esophageal reflux disease without esophagitis
[2024-10-04 23:23] VITALS: BMI 43.3
== END 2024-10-05 11:38 | disposition home or self-care (01) ==
LOC: HO.HBS 08:16
PROVIDERS: PCP Nurse Practitioner Family; Visit Provider Surgery
DX: E66.01 Morbid (severe) obesity due to excess calories (principal)
CPT/HCPCS: 99214

== ENCOUNTER 2024-10-14 05:51 | Day surgery (SDC) | payer OTHER, SELFPAY ==
[2024-10-05 12:39] VITALS: BMI 43.4
[2024-10-07 07:05] LABS: MANUAL DIFF FLAG NO
[2024-10-07 07:36] LABS: Hematocrit 37.5 % (37.0-47.0); Hemoglobin 12.0 g/dl (12.0-16.0); Imm Gran Abs Auto 0.02 X10*3/uL (0.00-0.03); Imm Gran Pct Auto 0.3 % (0.0-0.4); Lymphocytes Absolute Auto 2.2 X10*3/uL (1.2-4.9); Mean Corpuscular HGB Conc 32.0 g/dl (31.0-35.0); Mean Corpuscular Hemoglobin 26.1 pg (27.0-33.0); Mean Corpuscular Volume 81.7 fL (80.0-98.0); NRBC Abs Auto 0.000 X10*3/uL (0.0-0.012); NRBC Pct Auto 0.0 /100WBC (0.0-0.2); Platelet Count 276 X10*3/uL (160-400); Red Blood Count 4.59 X10*6/uL (4.20-5.50); White Blood Count 6.9 X10*3/uL (4.8-10.8)
[2024-10-07 07:45] LABS: Hemoglobin A1C 98.1376 umol/L; Total Hemoglobin (HGBA1C) 3133.0245 umol/L
[2024-10-07 07:48] LABS: INTERNATIONAL NORM RATIO 1.2 (0.9-1.1); Prothrombin Time 13.5 SEC (10.9-12.4)
[2024-10-07 07:51] LABS: Partial Thromboplastin Time 30.0 SEC (26.7-34.1)
[2024-10-07 08:19] LABS: Alanine Aminotransferase 52 U/L (0-31); Albumin Level 4.6 g/dL (3.5-5.0); Alkaline Phosphatase 78 U/L (39-117); Anion Gap 13 (12-20); Aspartate Amino Transferase 28 U/L (5-31); Blood Urea Nitrogen 12 mg/dL (9-16); Calcium 9.4 mg/dL (8.4-10.2); Carbon Dioxide 24 mmol/L (22-29); Chloride 107 mmol/L (96-108); Cholesterol 141 mg/dL (<200); Creatinine Clr Calc Pharmacy 147.8; Estimated Glomerular Filt Rate > 60; HDL Cholesterol 24 mg/dL (>40); Potassium 4.3 mmol/L (3.3-5.1); Sodium 140 mmol/L (135-145); Total Protein 8.2 g/dL (6.5-8.0); Triglycerides 125 mg/dL (<150)
--- NOTE | 2024-10-07 12:33 | HO.ANESPROP2 ---
Documented by User: Stacey Florez NP 10/07/24 12:34 HPI - Anesthesia Eval Consult details Narrative: 33yo F for Gastrectomy Sleeve,EGD,possible Diaphragmatic Hernia,possible Ventral Hernia,possible Open PMFSH Active Problems Active Problems: All Active Problems Abnormal EKG (Acute) Vitamin B12 deficiency (Acute) Vitamin D deficiency (Acute) PCOS (polycystic ovarian syndrome) (Acute) DJD (degenerative joint disease) (Acute) Scoliosis (Acute) Hypertension (Acute) Migraines (Acute) GERD (gastroesophageal reflux disease) (Acute) Morbid obesity (Acute) Past Medical History Medical History Asthma Arthritis Back pain PCOS (polycystic ovarian syndrome) DJD (degenerative joint disease) Scoliosis Hypertension Migraines GERD (gastroesophageal reflux disease) Morbid obesity Family History Family History (Updated 08/05/24 @ 15:45 by Emma Heranndez CMA) Mother No problems noted. Father No problems noted. Family history of problems with anesthesia: No Surgical History Surgical History History of esophagogastroduodenoscopy (EGD) Hx of dilation and curettage Hx of section Hx of spinal fusion History of Problems with Anesthesia: No Social History Social History (Updated 08/05/24 @ 15:45 by Emma Hernandez CMA) Are you a primary foster care worker to a significant other at home: No Do you presently have visiting nurse or other home services: No Alcohol intake: never Patient Tobacco Use Status: Never used Tobacco Use of substances other than those prescribed or required for medical reasons: No Have you been hit, kicked, punched, or otherwise hurt by someone within the past year? If so, by whom?: No Are you DNR?: No Advance Directives: No Advance Directives Information Provided: Yes Advance Directives on File: No Patient : No : No Poor oral hygiene: Yes Meds Allergies Allergy/AdvReac Type Severity Reaction Status Date / Time No Known Allergies Allergy Verified 10/14/24 06:06 Home Medications ?Medication ?Instructions ?Recorded ?Confirmed ?Last Taken ?Type acetaminophen 500 mg/15 mL oral 1,000 mg PO Q6H PRN Pain 08/05/24 10/05/24 Unknown History liquid cyclobenzaprine 10 mg tablet 10 mg PO BEDTIME PRN Muscle Spasm 08/05/24 10/05/24 10/04/24 History doxylamine succinate 25 mg tablet 25 mg PO BEDTIME PRN Insomnia 08/05/24 10/05/24 1 Day Ago History ~09/02/24 medroxyprogesterone 10 mg tablet 10 mg PO DAILY 08/05/24 10/05/24 10/04/24 History metoprolol succinate 100 mg 100 mg PO BEDTIME 08/05/24 10/05/24 10/13/24 History tablet,extended release 24 hr omeprazole 40 mg capsule,delayed 40 mg PO DAILY 08/05/24 10/05/24 10/13/24 History release rizatriptan 5 mg tablet 5 mg PO Q2-4H PRN Migraine Headache 08/05/24 10/05/24 Unknown History Exam Height,Weight and Vital Signs: Height 5 ft 9 in Weight 133.356 kg Pertinent Lab Results Pertinent Lab Results: Laboratory Tests 10/07/24 10/07/24 06:52 07:03 WBC 6.9 RBC 4.59 Hgb 12.0 Hct 37.5 MCV 81.7 MCH 26.1 L MCHC 32.0 RDW 13.5 Plt Count 276 MPV 10.4 Immature Gran % (Auto) 0.3 Neut % (Auto) 59.3 Lymph % (Auto) 32.0 Roane % (Auto) 6.5 Eos % (Auto) 1.6 Baso % (Auto) 0.3 Lymph # (Auto) 2.2 [place] # (Auto) 0.5 Eos # (Auto) 0.1 Baso # (Auto) 0.0 Abs Immat Gran (auto) 0.02 Absolute Neuts (auto) 4.1 Absolute Nucleated RBC 0.000 Nucleated RBC % (auto) 0.0 PT 13.5 H INR 1.2 H APTT 30.0 Sodium 140 Potassium 4.3 Chloride 107 Carbon Dioxide 24 Anion Gap 13 BUN 12 Creatinine 0.78 Estim Creat Clear Calc 147.8 Estimated GFR > 60 Random Glucose 96 Estimat Average Glucose 97 Hemoglobin A1c % 5.0 Insulin Level 20 Calcium 9.4 Total Bilirubin 0.4 AST 28 ALT 52 H Alkaline Phosphatase 78 C-Reactive Protein 0.88 H Total Protein 8.2 H Albumin 4.6 Triglycerides 125 Cholesterol 141 LDL Cholesterol, Calc 92 HDL Cholesterol 24 L TSH 1.64 Blood Type A Negative Antibody Screen NEGATIVE Narrative Narrative: EKG 09/2024 NSR @ 85 Assessment and Plan Assessment Anesthesia Assessment: Chart Reviewed Final Anesthetic Review Family History of Problems with Anesthesia: No History of Problems with Anesthesia: No Documented by User: La Grullon MD 10/14/24 07:10 [facility] Past Medical History Medical History Asthma Arthritis Back pain PCOS (polycystic ovarian syndrome) DJD (degenerative joint disease) Scoliosis Hypertension Migraines GERD (gastroesophageal reflux disease) Morbid obesity Family History Family History (Updated 08/05/24 @ 15:45 by Emma Hernandez CMA) Mother No problems noted. Father No problems noted. Surgical History Surgical History History of esophagogastroduodenoscopy (EGD) Hx of dilation and curettage Hx of section Hx of spinal fusion Social History Social History (Updated 08/05/24 @ 15:45 by Emma Hernandez CMA) Are you a primary foster care worker to a significant other at home: No Do you presently have visiting nurse or other home services: No Alcohol intake: never Patient Tobacco Use Status: Never used Tobacco Use of substances other than those prescribed or required for medical reasons: No Have you been hit, kicked, punched, or otherwise hurt by someone within the past year? If so, by whom?: No Are you DNR?: No Advance Directives: No Advance Directives Information Provided: Yes Advance Directives on File: No Patient : No : No Poor oral hygiene: Yes Meds Allergies Allergy/AdvReac Type Severity Reaction Status Date / Time No Known Allergies Allergy Verified 10/14/24 06:06 Home Medications ?Medication ?Instructions ?Recorded ?Confirmed ?Last Taken ?Type acetaminophen 500 mg/15 mL oral 1,000 mg PO Q6H PRN Pain 08/05/24 10/05/24 Unknown History liquid cyclobenzaprine 10 mg tablet 10 mg PO BEDTIME PRN Muscle Spasm 08/05/24 10/05/24 10/04/24 History doxylamine succinate 25 mg tablet 25 mg PO BEDTIME PRN Insomnia 08/05/24 10/05/24 1 Day Ago History ~09/02/24 medroxyprogesterone 10 mg tablet 10 mg PO DAILY 08/05/24 10/05/24 10/04/24 History metoprolol succinate 100 mg 100 mg PO BEDTIME 08/05/24 10/05/24 10/13/24 History tablet,extended release 24 hr omeprazole 40 mg capsule,delayed 40 mg PO DAILY 08/05/24 10/05/24 10/13/24 History release rizatriptan 5 mg tablet 5 mg PO Q2-4H PRN Migraine Headache 08/05/24 10/05/24 Unknown History Exam Airway Mallampati Class: I TM Dist: >3cm Neck ROM: Full Assessment and Plan Assessment Anesthesia Assessment: Anesthesia Plan Discussed Final Anesthetic Review NPO: Yes ASA Class: III Final Preanesthetic Review: No Changes in Pt Med Stat, Meds/Allgs Chart Reviewed, Consent Obtained/Reviewed, Anes Risks/Benef Reviewed and DNR Form (If Appl.) Patient Risk: Intermediate Procedure Risk: Intermediate Anesthetic Plan Anesthetic Plan: GA Disposition: Standard PACU
[2024-10-14] VITALS (16 sets, daily range): BP systolic 125–169; BP diastolic 64–95; PULSE 55–80; RESP 15–20; TEMP 36.1–37; O2SAT 96–100; BMI 41.9
[2024-10-14] MEDS: Aprepitant 32 MG/4.4 ML VIAL IVPUSH (06:31)
[2024-10-14] MEDS: Lactated Ringers 1,000 ML 999 ML IV (06:34)
[2024-10-14 06:42] LABS: UPreg QC Valid YES
--- NOTE | 2024-10-14 07:34 | MHC.SHP ---
Pre-Procedural Eval Section A - 24 Hr Update-Section A only Date of Service: 10/14/24 The patient is an INPATIENT: No The patient has been examined within 24 hours of the surgical procedure. The History & Physical has been completed within 30 days and I have reviewed it.: Yes Section B - Complete if H&P > 30 days Chief Complaint: Morbid (severe) obesity due to excess calories Relevant Family History (Specify if Yes): No Relevant Social History: None Present Medications: None Medical History: No relevant PMH History of Previous Operations: No relevant previous surgery Allergies: Allergies Allergy/AdvReac Type Severity Reaction Status Date / Time No Known Allergies Allergy Verified 10/14/24 06:06 Review of Systems Sugical H&P ROS: Negative: Constitution, Cardiovascular, Respiratory, Neurological, Psychiatric, Hem-Onc, Allergic/Immunologic, Gastrointestinal, Genitourinary, Musculoskeletal, Integumentary, Endocrine and Eyes/Ears/Nose/Throat Exam Surgical H&P Exam: Normal: HEENT, Normal: Heart, Normal: Lungs, Normal: Extremities, Normal: Abdomen, Normal: Skin and Normal: Neurological Plan Diagnosis/Plan: Unchanged I have reviewed the history and physical and performed a pertinent physical examination on my patient. No changes have occurred unless specified. Time Spent With Patient Time: Total time managing care of this patient today ____ minutes.
--- NOTE | 2024-10-14 07:51 | P.BOP_ITS ---
Brief Operative Note Date of Service: 10/14/24 Pre-op diagnosis: Morbid obesity with comorbidities (see below) Post-op diagnosis: same Procedure: INITIAL PATIENT BMI ON PRESENTATION AT OUR OFFICE: 49.1 kg/m2 LAST BMI BEFORE SURGERY: 42 kg/m2 COMORBIDITIES: Hypertension, PCOS, GERD, migraines, scoliosis ?The patient presented to the Weight Management Program with significant obesity that was negatively impacting the patient's comorbidities as listed above.? The program is a phased program with a special focus on preoperative medical weight management to promote substantial weight loss and prepare the patients for the second phase of the program: bariatric surgery. The patient participated in an intensive weekly lifestyle ?intervention and exercise program during which the patient ?has lost between the initial office visit and the last preoperative visit 48.9 lbs, or 14.71% of initial actual body weight. It was deemed appropriate for the patient to now have bariatric surgery. In light of the current Covid-19 pandemic and the well documented strong association of obesity and increased risk of worse outcomes if infected with Covid-19 (REFERENCES: https://pubmed.ncbi.nlm.nih.gov/25392862/ ,? ht tps://pubmed.ncbi.nlm.nih.gov/39708009/ ), any delay in undergoing bariatric surgery may lead to the patient's worsening health condition and increased?risk of more severe Covid-19 disease if infected. In addition a recent?study from [facility] published in [facility] on 02/27/2021 ([email or web address]) found that, among patients with obesity, substantial weight loss achieved with surgery was associated with improved outcomes of COVID-19 infection. The findings suggest that obesity can be a modifiable risk factor for the severity of COVID-19 infection. In addition, the patient met the BMI-criteria for bariatric surgery based on the BMI on initial presentation. The patient should not be penalized for achieving such weight loss because ?it is not sustainable long-term without surgical intervention and it was achieved in preparation for bariatric surgery ?under my direction and based on my published research ([email or web address]).[email or web address] and? https://www.soard.org/article/[email or web address](97)45902-X/pdf ) ?that a 10% preoperative weight loss improves long-term weight loss after surgery and reduces perioperative complications.? Insurance carriers such as [facility] have endorsed my recommendations ?and have included in their policies criteria to include a 10% preoperative weight loss requirement. PROCEDURE: Esophago-gastroscopy, laparoscopic lysis of adhesions, laparoscopic sleeve gastrectomy and laparoscopic gastropexy INDICATIONS: This is a 33 year-old female who was electively scheduled for laparoscopic, possibly open sleeve gastrectomy. The risks and complications of the procedure were discussed with the patient in advance, particularly the possibility of ; pulmonary embolism; staple line leak; bleeding; GERD; cardiac, pulmonary, or renal complications; as well as long-term problems such as insufficient weight loss, vitamin deficiency, strictures, or ulcers. The patient understood all the risks, and was in agreement to proceed with surgery. DESCRIPTION OF PROCEDURE: After informed consent was obtained from the patient, the patient was given preoperative antibiotics, and was transferred to the operating room. After successful induction of general anesthesia, pneumatic compression devices were placed on both lower extremities. An upper endoscopy was performed next. The oropharynx and esophagus appeared to be within normal limits. There was no diaphragmatic hernia present. The stomach was entered. Then after all fluid and air were suctioned and the stomach was fully decompressed, the scope was withdrawn and secured in the mid esophagus. The patient was then prepped and draped in the usual sterile manner, and abdom inal access was established at the right upper quadrant with the Galdino technique. A 12 mm blunt port was inserted, and the abdomen was insufflated with CO2 to a pressure of 15 mmHg. Under direct visualization, additional ports were placed, specifically two 5 mm Versi-step ports to the left upper quadrant, and a 5 mm Versi-Step port to the right upper quadrant. 1% lidocaine plain was used to infiltrate all port sites as well as all fascia defects. Following that, the patient was placed in a steep reverse Trendelenburg position. An additional 5 mm port was placed to the right flank for the Mediflex retractor that was used to retract the left lobe of the liver. The gastro-esophageal fat pad was opened with the ultrasonic device (Thvikyerbeat, Olympus) and the anterior esophagus and hiatus were exposed. The angle of His was opened with the ultrasonic device the fundus of the stomach from any diaphragmatic and splenic attachments. I then opened the gastrocolic ligament between the transverse colon and the greater curvature of the stomach with the ultrasonic device to enter the lesser sac and facilitate the ligation of the short gastric vessels. I started at a mid-point along the greater curvature and using the Thunderbeat, all short gastric vessels were divided all the way to the angle of His until the left christa was completely dissected at its entirety. I then divided the gastro-colic ligament distally to a distance of about 3-4 cm proximal to the pylorus. The stomach was then divided transversely with two Endo MEENAKSHI-45 purple and four MEENAKSHI-60 articulating purple loads using the [employer] stapler and loads. Every effort was made that the gastric sleeve had a tubular shape and an even caliber throughout. Once the sleeve resection was completed, the staple line of the gastric sleeve was reinforced with Hemoclips. The resected stomach was retrieved without difficulty from the Galdino port. A gastropexy was then performed in order to prevent postoperative GERD and partial gastric volvulus. Several interrupted 2.0 Surgidac sutures were placed between the sleeve's staple line and the previously divided greater omentum and gastro-colic ligament using the Endo-Stitch device. ?An upper endoscopy was performed. There was no narrowing at the GE junction. The scope was easily advanced all the way to the pylorus which was clearly visualized. There was no narrowing anywhere and the sleeve's caliber was even throughout. The sleeve's staple line was inspected and there was no evidence of ischemia, bleeding or dehiscence. At that point the gastroscope was withdrawn from the patient?s mouth while we were decompressing the bowel and the stomach from any remaining air. I looked into the lesser sac to see how the sleeve was situating and it was situating well. There was no bleeding from the staple line, spleen, or short gastric vessels. The Mediflex retractor was removed, and the undersurface of the liver was inspected and there was no bleeding. The patient was placed in supine position. I closed the fascial defect of the 12 mm port site with a figure of eight #1 Polysorb suture. Then 30cc Ropivacaine plain with 10 mg of Dexamethasone were used to infiltrate the fascial closure as well as all skin incisions. At this point, the abdomen was deflated, all ports were removed under direct vision, and no bleeding was noted from any of the port sites. The skin incisions were irrigated with saline and were closed with 4-0 absorbable monofilament sutures. Steri-Strips and OpSites were used to cover all incisions. The patient was extubated and was transferred in stable condition to the recovery room for further care. I was present and performed all wilkes parts of the procedure. Mr. Rosenbaum was the assistant corporate secretary. There were no residents to assist with this case. Teofilo Curtis MD, PhD, FACS Surgeon: Tobi Curtis MD Anesthesia: local and other (TAP block) Was an Supply Chain Planner used for this Procedure?: No Supply Chain Planner: Sammy Rosenbaum Estimated blood loss (mL): 10 Urine output (mL): 0 (No Sullivan to record output) Pathology: other (1) Stomach) Condition: stable Disposition: PACU
--- NOTE | 2024-10-14 07:53 | PM.PNGS ---
Subjective Subjective Date of Service: 10/15/24 Interval history: Feels well. Mild incisional pain. She is tolerating phase 1 bariatric diet Physical Exam Vital Signs: Vital Signs: Last Vital Signs Temp 97.0 F 10/14/24 06:36 Pulse 63 10/14/24 06:36 Resp 16 10/14/24 06:36 BP 125/79 10/14/24 06:36 Pulse Ox 99 10/14/24 06:36 O2 Del Method Room Air 10/14/24 06:36 BMI result Body Mass Index 41.9 GI: Inspection: Yes normal to inspection, Yes incision (clean, dry and intact) and Yes obesity Palpation (GI): Soft to palpation Extrem: Right lower extremity: normal to inspection (no calf tenderness) Left lower extremity: normal to inspection (no calf tenderness) Objective Data Active Medications Fentanyl (Fentanyl Citrate/Pf 100 Mcg/2 Ml Vial) 50 mcg IVPUSH Q5M PRN PRN Reason: Pain, Moderate to Severe (Pain Scale 4-10) Stop: 10/14/24 13:10 Lactated Ringer's (Lr) 1,000 mls @ 100 mls/hr IVCONT .Q10H [facility] Stop: 10/14/24 09:59 Lactated Ringer's (Lr) 1,000 mls @ 999 mls/hr IV .Q1H1M [facility] Stop: 10/14/24 08:00 Last Admin: 10/14/24 06:34 Dose: 999 mls/hr Documented By: GUILHERME Naloxone HCl (Naloxone Hcl 0.4 Mg/Ml Vial) 0.04 mg IVPUSH Q5M PRN PRN Reason: Excessive sedation or RR < 8 Ondansetron HCl (Ondansetron Hcl 4 Mg/2 Ml Vial) 4 mg IVPUSH ONCE PRN PRN Reason: Nausea and Vomiting Stop: 10/14/24 13:10 Labs 10/15/24 05:38 10/15/24 05:38 Labs: Laboratory Results - last 24 hr 10/14/24 06:10 Urine Test NEGATIVE Procedures Date of Service Date of Service: 10/15/24 Progress Note: A&P Assessment and plan (1) Morbid obesity: Status: Acute Assessment and Plan: s/p laparoscopic sleeve gastrectomy, lysis of adhesions and gastropexy Doing well Will check am labs and if OK the patient will be discharged home (2) Hypertension: Status: Acute (3) PCOS (polycystic ovarian syndrome): Status: Acute (4) GERD (gastroesophageal reflux disease): Status: Acute (5) Migraines: Status: Acute (6) DJD (degenerative joint disease): Status: Acute (7) S/P laparoscopic sleeve gastrectomy: Status: Acute Time Spent With Patient Time: Total time managing care of this patient today ____ minutes. Quality Stroke Does the patient have a stroke diagnosis?: No VTE Prior VTE?: No VTE Risk Level:: Surgical - moderate VTE Device Contraindication: N/A - Device Ordered VTE Drug Contraindication: Treatment Not Indicated
--- NOTE | 2024-10-14 09:55 | P.DS_ITS ---
DS: Providers Provider Date of Service: 10/15/24 Date of discharge: 10/15/24 Primary care physician: PLACIDO Ingram DS: Diagnosis Discharge Diagnosis (1) Morbid obesity: Status: Acute (2) Hypertension: Status: Acute (3) PCOS (polycystic ovarian syndrome): Status: Acute (4) GERD (gastroesophageal reflux disease): Status: Acute (5) Migraines: Status: Acute (6) DJD (degenerative joint disease): Status: Acute DS: Summary Hospital Course Hospital Course: ADMITTING DIAGNOSIS: morbid obesity, htn, migraine ? DISCHARGE DIAGNOSIS: same, s/p laparoscopic sleeve gastrectomy ? PAST SURGICAL HISTORY: back surgery, cesarian section ? PROCEDURE: upper endoscopy, laparoscopic sleeve gastrectomy ? DISCHARGE SUMMARY: ? History of Present Illness: ? The patient is a??33 year-old woman with a BMI of?49.1 kg/m2 and associated co- morbidities as described above. The patient had extensive work-up,lost?42.2 lbs preoperatively and was electively scheduled for laparoscopic, possible open sleeve gastrectomy and gastropexy. Risks and complications of the surgery were discussed with the patient in advance, particularly the possibility of , pulmonary embolism, anastomotic leak, bleeding, bowel injury, GERD, cardiac, renal or pulmonary complications. The patient understood all the risks and was in agreement with the surgical plan. ? Hospital Course: ? The patient underwent an uneventful laparoscopic sleeve gastrectomy with gastropexy on the day of admission. Postoperatively, the patient was transferred to the surgical floor. The patient received IV Acetaminophen and IV dilaudid for pain control. Patient was started on bariatric phase 1 diet POD #0. On postoperative day one, the patient was feeling well without nausea, vomiting, fevers, or tachycardia. The patient had some mild incisional pain and the abdomen was soft. ? On the morning of postoperative day one, the patient was continued on 1 ounce of water or ice every half hour. During the day, the patient did fairly well, having some incisional pain, but able to ambulate adequately and to tolerate liquids well. ? Since the patient is doing well, we decided that the patient was ready to be discharged. The patient was given instructions to follow-up with me next week and to call my office for any fever over 101, persistent abdominal pain, nausea, vomiting, GERD, symptoms of DVT such as calf tenderness, or leg swelling, or pulmonary embolism such as chest pain or shortness of breath. The patient was also instructed to drink 40-60 ounces of liquids per day using the 1-ounce cups. The patient had been given prescriptions for Tylenol for pain, Zofran prn for nausea, and pantoprazole and carafate previously. The patient was encouraged to ambulate and use the incentive spirometer. The patient was allowed to shower, but no baths, and encouraged to stay active at home. All of these instructions were given to the patient personally. All questions were answered and the patient understood all instructions, the instructions were also given to the patient in print. Time Attestation Total time managing care of this patient today: 25 mintues. Discharge Coordination Time (in mins): 25 Quality: Safe Use of Opioids Does Pt have an Active Cancer Diagnosis on the Problem List?: No Quality: Stroke Does the patient have a stroke diagnosis?: No Physical Exam Vital Signs: Vital Signs: Last Vital Signs Temp 97.0 F 10/14/24 06:36 Pulse 63 10/14/24 06:36 Resp 16 10/14/24 06:36 BP 125/79 10/14/24 06:36 Pulse Ox 99 10/14/24 06:36 O2 Del Method Room Air 10/14/24 06:36 BMI result Body Mass Index 41.9 DS: Data Data Completed and Pending Pending studies at discharge: Pending at discharge 10/14/24 09:13 Surgical [PTH] Routine Labs on day of discharge: Laboratory Results - last 24 hr 10/14/24 06:10 Urine Test NEGATIVE Discharge Plan Discharge Patient Disposition: Home, Self-Care Referrals: Susan Mohan FNP-BC [Primary Care Provider, Internal Medicine] - 1 Week Discharge Medications: Continued omeprazole 40 mg capsule,delayed release(DR/EC) 40 mg PO DAILY doxylamine succinate 25 mg tablet 25 mg PO BEDTIME PRN (Reason: Insomnia) acetaminophen 500 mg/15 mL liquid 1,000 mg PO Q6H PRN (Reason: Pain) rizatriptan 5 mg tablet 5 mg PO Q2-4H PRN (Reason: Migraine Headache) Rx Instructions: do not exceed 6 doses per 24 hrs Held cholecalciferol (vitamin D3) 125 mcg (5,000 unit) capsule 125 mcg PO DAILY Qty: 90 0RF Hold Instructions: Resume on 10/29/24. mecobalamin (vitamin B12) 1,000 mcg tablet,disintegrating 1,000 mcg sublingual DAILY Qty: 90 0RF Hold Instructions: Resume on 10/23/24. Rx Instructions: place tablet under tongue and allow to dissolve for at least30 secs before swallowing metoprolol succinate 100 mg tablet extended release 24 hr 100 mg PO BEDTIME Hold Instructions: Resume on 10/16/24. Check your blood pressure every morning as soon as you wake up and send it to Dr. Walker. Do no take the blood pressure medication if the blood pressure is below 120/70. Wait every day to hear back from Dr. Walker before you take the medication. cyclobenzaprine 10 mg tablet 10 mg PO BEDTIME PRN (Reason: Muscle Spasm) Hold Instructions: Resume on 10/29/24. medroxyprogesterone 10 mg tablet 10 mg PO DAILY Hold Instructions: until discussed with dr walker Discharge Orders: Discharge Order (Routine); Ordered 10/15/24 Ordered By: Tobi Walker Activity on Discharge: No heavy lifting Activity Restrictions/Additional Instructions: No tub baths, sex or returning to work until discussed at first post op appointment. No exercise, alcohol, tobacco or illegal drug use. Continue to use incentive spirometer hourly while awake. Walk in home for 5- 10 minutes every 2 hours during the first week. Follow all instructions in the bariatric handbook and call with any questions.Discharge Instructions 1. Please call your doctor or come back to the emergency room should any new symptoms arise. 2. You will receive a courtesy call from [facility] 24-48 hours after discharge. 3. Activity: abstain from alcohol, practice limited stair climbing, no bending, no driving, no exercise, no illicit substances, no lifting, no sex, no tub bath, no work. 4. Diet: continue as discussed with Dr. Walker. 5. Dressing Change/Wound Care: Your incision is covered by clear bandages and guaze underneath. If the area is tender, you may apply an ice pack for short intervals (no more than 20 minutes on, followed by at least 20 minutes off). Do not apply heat. Do not use creams, lotions, or topical antibiotics unless instructed to do so by your surgeon. These can cause infection or allergic reaction. 6. Call your doctor if: - Your temperature exceeds 101.5 F - You experience excessive pain or swelling - You have an unexpected reaction to medication - You have excessive bleeding - You experience continued vomiting/nausea - Your incision begins to separate - Your incision shows signs of infection such as increased redness, swelling, excessive pain, heat, or drainage (light blood or clear fluid is normal) 7. General instructions: No lifting greater than 5 lbs for 1 week and not more than 20lbs the next 3?weeks. No driving until seen at the office in 5-7 days after surgery. If you do not move your bowels in the next 2 days, please tell?Dr. Walker. Please walk around your home every hour or two to prevent blood clots from forming in your legs. You do not need to wake from sleeping to walk. Please sleep in a bed or couch to prevent kinking at the hips and knees. Please take your incentive spirometer (your lung interventional radiology rn) home with you and use it for the next few days to prevent pneumonia. You may shower, no hot tubs, baths or swimming pools.?Please follow the post op diet instructions you are?given by Dr Walker? and text me daily at 5-6pm for an update.?If you have any issues or concerns or questions please communicate this to him via text.? The Celebrate shakes have all of the bariatric vitamins you need if you consume these shakes. If you are drinking other protein shakes, you will need to purchase the Celebrate multivitamins and calcium that are available in the hospital gift shop on the first floor of the main hospital.??Do not take anything without first discussing with Dr Walker. Please make sure you are consuming at least 40 ounces of fluids per day starting the?day AFTER your discharge from the hospital. Always drink 1-2 ml per minute using the 5ml?syringe. If you drink faster you may experience?bloating,?gas pain, burping, nausea or heartburn. In that case please slow down your pace and use the syringe to?understand better the?proper?pace and volume of drinking. Do not hesitate to contact the office with any questions at . The patient's medical history has been reviewed and they are considered low risk for post op DVT and therefore DVT prophylaxis is not considered necessary. Travel after surgery was reviewed. The patient has not disclosed any travel plans during the first 30 days after surgery and they have been advised that within the first 30 days after surgery any bus, plane, train or car travel over 2 hours in duration is contraindicated due to the possibility of developing blood clots from immobility. Any travel, needs to include periods of ambulation of 10 minutes in duration every 2 hours.? The patient was instructed to discuss any plans for travel during this period with their bariatric surgeon. Print Language: Chinese
[2024-10-14 10:12] LABS: Hematocrit 36.3 % (37.0-47.0); Hemoglobin 11.4 g/dl (12.0-16.0)
[2024-10-14 10:29] LABS: Anion Gap 13 (12-20); Blood Urea Nitrogen 11 mg/dL (9-16); Calcium 8.7 mg/dL (8.4-10.2); Carbon Dioxide 21 mmol/L (22-29); Chloride 106 mmol/L (96-108); Creatinine Clr Calc Pharmacy 166.1; Estimated Glomerular Filt Rate > 60; Potassium 4.4 mmol/L (3.3-5.1); Sodium 136 mmol/L (135-145)
[2024-10-14] MEDS: Lactated Ringers 1,000 ML 100 ML IVCONT ×2 (12:56→22:37)
--- NOTE | 2024-10-14 15:01 | PHA.MEDREC ---
Addendum entered by Javier Herbert, PharmD 10/14/24 15:18: MED REC CHECKED BY [facility] Original Note: Pharmacy Consult ? Medication Reconciliation Pharmacy reviewed med rec done by nursing. Pt states she is going to start the Ondansetron, Pantoprazole and Sucralfate after she gets home from her surgery; I took them off the med rec since they were confirmed.
[2024-10-15 03:15] VITALS: BP 137/75; PULSE 50; RESP 16; TEMP 36.1; O2SAT 98
[2024-10-15 06:13] LABS: MANUAL DIFF FLAG NO
[2024-10-15 06:41] LABS: Anion Gap 12 (12-20); Blood Urea Nitrogen 6 mg/dL (9-16); Calcium 8.7 mg/dL (8.4-10.2); Carbon Dioxide 23 mmol/L (22-29); Chloride 106 mmol/L (96-108); Creatinine Clr Calc Pharmacy 168.6; Estimated Glomerular Filt Rate > 60; Potassium 3.9 mmol/L (3.3-5.1); Sodium 137 mmol/L (135-145)
[2024-10-15 06:47] LABS: Hematocrit 34.2 % (37.0-47.0); Hemoglobin 10.9 g/dl (12.0-16.0); Imm Gran Abs Auto 0.04 X10*3/uL (0.00-0.03); Imm Gran Pct Auto 0.4 % (0.0-0.4); Lymphocytes Absolute Auto 1.9 X10*3/uL (1.2-4.9); Mean Corpuscular HGB Conc 31.9 g/dl (31.0-35.0); Mean Corpuscular Hemoglobin 26.1 pg (27.0-33.0); Mean Corpuscular Volume 82.0 fL (80.0-98.0); NRBC Abs Auto 0.000 X10*3/uL (0.0-0.012); NRBC Pct Auto 0.0 /100WBC (0.0-0.2); Platelet Count 273 X10*3/uL (160-400); Red Blood Count 4.17 X10*6/uL (4.20-5.50); White Blood Count 10.9 X10*3/uL (4.8-10.8)
[2024-10-15 07:43] VITALS: BP 136/73; PULSE 60; RESP 18; TEMP 37.3; O2SAT 100
--- NOTE | 2024-10-15 08:43 | HO.POSTANES ---
Post Anesthesia Evaluation Post Anesthesia Evaluation Date of Service: 10/15/24 Vital Signs: Vital Signs Temp Pulse Resp BP Pulse Ox O2 Del Method 10/15/24 07:43 99.2 F 60 18 136/73 100 Room Air 10/15/24 03:15 96.9 F 50 16 137/75 98 Room Air 10/14/24 21:17 55 Anesthesia: General Endotracheal-GETA Mental Status: Awake Pain Control: Satisfactory Nausea/Vomiting: None Hydration: Adequate Anesthesia-Related Issues: No Anes. Related Issues
--- NOTE | 2024-10-15 09:31 | MHC.CM.PN ---
Patient dc'd home self care via private transport prior to CM assessment.
== END 2024-10-15 09:19 | disposition home or self-care (01) ==
LOC: HO.SSS 09:57 → HO.S3 12:35
PROVIDERS: Nurse Practitioner; Physician Assistant Surgical; PCP Nurse Practitioner Family; Visit Provider Surgery
PROC: (CPT 43845; principal; 2024-10-14 07:30)
DX: E66.01 Morbid (severe) obesity due to excess calories (principal); Z68.41 Body mass index [BMI] 40.0-44.9, adult; K21.9 Gastro-esophageal reflux disease without esophagitis; R11.0 Nausea; I10 Essential (primary) hypertension; E28.2 Polycystic ovarian syndrome; G43.909 Migraine, unspecified, not intractable, without status migrainosus; M19.90 Unspecified osteoarthritis, unspecified site; M41.9 Scoliosis, unspecified; Z79.1 Long term (current) use of non-steroidal anti-inflammatories (NSAID); Z79.899 Other long term (current) drug therapy; Z98.1 Arthrodesis status; Z98.890 Other specified postprocedural states
CPT/HCPCS: 43775; 43659; 36415; 80048; 80053; 80061; 81025; 83036; 83525; 84443; 85014; 85018; 85025; 85610; 85730; 86140; 86850; 86900; 86901; 88304; 88305; 88307; 88342; A4649; C9145; J0131; J0690; J1100; J1171; J2003; J2250; J2405; J2470; J2704; J2765; J2795; J3010; J7120

== ENCOUNTER → 2024-10-14 05:51 | Outpatient (BNV) | payer OTHER, SELFPAY | PROVIDERS: PCP Nurse Practitioner Family; Visit Provider Surgery | DX: E66.01 Morbid (severe) obesity due to excess calories (principal); Z68.41 Body mass index [BMI] 40.0-44.9, adult; Z98.84 Bariatric surgery status | CPT/HCPCS: 43659; 43775; 99024; 99499 ==

== ENCOUNTER 2024-10-20 14:14 | Outpatient (AMB) | payer OTHER, SELFPAY ==
--- NOTE | 2024-10-20 14:13 | A.OFFWM_ITS ---
Intake Intake Visit Reasons: TV PO LSG 10/14/24 Allergies No Known Allergies Allergy (Verified 10/14/24 06:06) PFSH Medical History (Updated 10/15/24 @ 00:00 by Background Daemon) Asthma Arthritis Back pain PCOS (polycystic ovarian syndrome) DJD (degenerative joint disease) Scoliosis Hypertension Migraines GERD (gastroesophageal reflux disease) Morbid obesity Surgical History (Updated 10/15/24 @ 00:00 by Background Daemon) History of esophagogastroduodenoscopy (EGD) Hx of dilation and curettage Hx of section Hx of spinal fusion Family History (Updated 08/05/24 @ 15:45 by Emma Hernandez CMA) Mother No problems noted. Father No problems noted. Social History (Updated 08/05/24 @ 15:45 by Emma Hernandez CMA) Household Members: Spouse Housing: Apartment Are you a primary manager respiratory care to a significant other at home: No Do you presently have visiting nurse or other home services: No Alcohol intake: never Patient Tobacco Use Status: Never used Tobacco Behavioral Health Assessment Weight Management Therapy Therapy Notes Details Subjective: Patient underwent weight loss surgery on 10/14/2024; preoperative weight was 283 lbs. She returned to work yesterday. Patient denies any pain but reports mild stomach discomfort and one episode of emesis yesterday, described as mostly foam. She also notes increased mouth watering. Patient attributes her current physical discomfort primarily to a flare-up of her chronic back issues related to scoliosis, rather than the surgery itself. She reports tolerating the liquid diet well, including water with crystal-light and, protein water (24 oz). Patient denies feelings of hunger or preoccupation with food. Mood remains good, and she identifies her as her primary source of support. Objective: Patient seen for behavioral health post-operative follow-up. Guided emotional check-in completed to assess mood, recovery, and adjustment post-surgery. PHQ-9 score was low, indicating no depressive symptoms. Provided psychoeducation on emotional changes after bariatric surgery and strategies to distinguish hunger from cravings. Reviewed adherence to Weight Management Program guidelines, including hydration, meal pacing, and exercise. Offered tips for long-term success and invited patient to join the program?s [employer] support group for ongoing resources and community support. Assessment/Response: * Mental status: WNL * Risk reported/identified: None Questionnaires PHQ-9 Over the last 2 weeks, how often have you been bothered by any of the following problems? 1. Little interest or pleasure in doing things: not at all 2. Feeling down, depressed, or hopeless: not at all 3. Trouble falling or staying asleep, or sleeping too much: several days (normal due to a recent surgery.) 4. Feeling tired or having little energy: several days 5. Poor appetite or overeating: not at all 6. Feeling bad about yourself - or that you are a failure or have let yourself or your family down: not at all 7. Trouble concentrating on things, such as reading the newspaper or watching television: not at all 8. Moving or speaking so slowly that other people could have noticed. Or the opposite - being so fidgety or restless that you have been moving around a lot more than usual: not at all 9. Thoughts that you would be better off or of hurting yourself in some way: not at all Total score: 2 Depression Screening Interpretation: Negative Depression Screening Done: Yes 56296 - PHQ-9 Billing: Yes Source: Developed by Drs. Carlyle Flor, Sandy York, Tod Sunshine and colleagues, with an educational alexa from [email or web address]. Assessment & Plan Assessment & Plan (1) Eating disorder, unspecified: Code(s): F50.9 - Eating disorder, unspecified (2) Status post bariatric surgery: Code(s): Z98.84 - Bariatric surgery status Plan -No safety concerns were identified, and behavioral health monitoring is not indicated at this time. The patient declined further behavioral health visits but is aware of the support available should she need it in the future. -She was advised to communicate her ongoing stomach discomfort to her PA for further evaluation and guidance. Telehealth Telehealth Telehealth Platform: [employer] Location of provider rendering services: other (Home office. [place], [place]) Location of patient: address on file Patient Identification confirmed using: Name, : Yes Telehealth method: voice only Patient verbally consented to treatment: Yes Patient verbally consented to billing insurance company: Yes Patient informed of any privacy concerns related to visit: Yes Minutes spent on Phone/Video with Pt.: 20 Coding Level of Care Code Established Pt Tele Psytx 30 mins (97150) Patient Type Established Diagnoses Eating disorder, unspecified F50.9 Status post bariatric surgery Z98.84 Additional Codes PHQ-9 - 39721 - PHQ-9 Billing: Yes ([id number]) Time Spent (min) 20
== END 2024-10-20 14:39 | disposition home or self-care (01) ==
LOC: HO.HBST 14:14
PROVIDERS: PCP Nurse Practitioner Family; Visit Provider Counselor Mental Health
DX: F50.9 Eating disorder, unspecified (principal); Z98.84 Bariatric surgery status
CPT/HCPCS: 90832

== ENCOUNTER 2024-10-21 10:54 | Outpatient (AMB) | payer OTHER, SELFPAY ==
--- NOTE | 2024-10-21 11:05 | MHC.OFFVISWM ---
VS Expanded 10/21/24 11:16 BP 139/73 Blood Pressure Location Rt brachial Blood Pressure Position Sitting Pulse 62 Pulse Source Pulse Oximeter Temp 95.6 F L Temperature Source Temporal Artery Scan Pulse Oximetry 100 Oxygen Delivery Method Room Air Height 5 ft 9 in Weight 277 lb 9.6 oz BMI 41.0 Body Fat % 45.5 Body Fat Mass 126.4 Fat Free Mass 151.2 Visceral Fat Rating 12.0 Body Water % 39.1 Body Water Mass 108.4 Muscle Mass/Score 143.8 Basal Metabolic Rate/Score 2,156 Intake Visit Reasons: (OV) PO LSG 10/14/24 Allergies No Known Allergies Allergy (Verified 10/21/24 11:10) HPI Comments Details: Patient is a pleasant 33-year-old female who returns to the office today in follow-up. She is 7 days post sleeve gastrectomy performed on 10/14/2024. Weight today is 277.6 lb with a BMI of 41. She is tolerating 8 oz of protein 2.0 at 10-12, 2-4, 6-8 and approximately 40-50 oz of fluids total. She has moved her bowels. [facility] Medical History (Updated 10/15/24 @ 00:00 by Maryjo Anderson) Asthma Arthritis Back pain PCOS (polycystic ovarian syndrome) DJD (degenerative joint disease) Scoliosis Hypertension Migraines GERD (gastroesophageal reflux disease) Morbid obesity Surgical History (Updated 10/21/24 @ 11:10 by Emma Hernandez CMA) S/P gastric sleeve procedure History of esophagogastroduodenoscopy (EGD) Hx of dilation and curettage Hx of section Hx of spinal fusion Family History Mother No problems noted. Father No problems noted. Social History (Updated 08/05/24 @ 15:45 by Emma Hernandez CMA) Household Members: Spouse Housing: Apartment Are you a primary home care music therapist to a significant other at home: No Do you presently have visiting nurse or other home services: No Alcohol intake: never Patient Tobacco Use Status: Never used Tobacco Physical Exam GI Inspection: Yes incision (Clean, dry, intact.) Assessment & Plan Assessment & Plan (1) S/P laparoscopic sleeve gastrectomy: Code(s): Z98.84 - Bariatric surgery status Category: Surgical Plan: POD 7 s/p LSG on 10/14/[address] Curtis Weight loss prior to surgery was 42.2 pounds or 12.6 % TBWL. Original weight on 08/2024 was 332.4 pounds and op weight was 290.2 pounds. Be sure to text Dr Curtis exactly 1 week after surgery your weight from your home scale so he can adjust your meal plan. Continue meal plan until f/u w Shanelle May shower, no submersion in bath for another week Continue abdominal binder with activity and exercise for the next 2 weeks. Exercise prior to surgery was stationary bike and may resume No abdominal exercises for 6 weeks post operatively Will be emailed link to post op video for review Reminded of the pace of drinking, 2 mL per minute, 1 oz/15 min.
[2024-10-21 11:16] VITALS: BP 139/73; PULSE 62; TEMP 35.3; O2SAT 100; BMI 41.0
== END 2024-10-21 11:48 | disposition home or self-care (01) ==
LOC: HO.HBS 10:55
PROVIDERS: PCP Nurse Practitioner Family; Visit Provider Physician Assistant Surgical
DX: Z98.84 Bariatric surgery status (principal)
CPT/HCPCS: 99024

== ENCOUNTER 2024-12-25 09:14 | Outpatient (AMB) | payer OTHER, SELFPAY ==
--- NOTE | 2024-12-25 10:00 | MHC.OFFVISWM ---
VS Expanded 12/25/24 10:02 Height 5 ft 9 in Weight 250 lb 2 oz BMI 36.9 Intake Visit Reasons: Phone PO LSG 10/14/24 Allergies No Known Allergies Allergy (Verified 10/21/24 11:10) Medication List - Last Reconciled 12/25/24 by NNAMDI Brown acetaminophen 1,000 mg PO Q6H PRN cholecalciferol (vitamin D3) 125 mcg PO DAILY Held on 10/15/24. Instructions: Resume on 10/29/24. cyclobenzaprine 10 mg PO BEDTIME PRN Held on 10/15/24. Instructions: Resume on 10/29/24. doxylamine succinate 25 mg PO BEDTIME PRN mecobalamin (vitamin B12) 1,000 mcg sublingual DAILY Held on 10/15/24. Instructions: Resume on 10/23/24. medroxyprogesterone 10 mg PO DAILY Held on 10/14/24. Instructions: until discussed with dr walker metoprolol succinate ER 100 mg PO BEDTIME Held on 10/15/24. Instructions: Resume on 10/16/24. Check your blood pressure every morning as soon as you wake up and send it to Dr. Walker. Do no take the blood pressure medication if the blood pressure is below 120/70. Wait every day to hear back from Dr. Walker before you take the medication. omeprazole 40 mg PO DAILY ondansetron 2 mg (1/2 x 4 mg) PO Q12H pantoprazole 40 mg PO DAILY pantoprazole 40 mg PO BID rizatriptan 5 mg PO Q2-4H PRN HPI Comments Details: This?is a? 34 yo F who is s/p LSG 10/14/2024. Presents for 2 mo post op visit. Weight at last visit on 10/21/2024 was 277.6 pounds; weight today is 250.2 pounds, representing a 27.4 pound weight loss with a BMI today of 36.9. No complaints of nausea, emesis, abdominal pain, or constipation. She stopped texting with Dr Yates A few weeks after surgery struggled to take in anything and felt he got frustrated. She does feel better over the past few weeks with taking things in. She also notes her was hospitalized with sepsis around that time and she felt overwhelmed. Present meal plan includes: stopped protein drinks and bars because she couldn't tolerate them thinks she can tolerate Fairlife shakes (30g) and wants to try Nuri brand has tried Pure Protein and recently tried Built Exercise routine includes: I haven't been exercising but I've been meaning to start - has equipment at home PFSH Medical History (Updated 12/25/24 @ 10:08 by NNAMDI Brown) Asthma Arthritis Back pain PCOS (polycystic ovarian syndrome) DJD (degenerative joint disease) Scoliosis Hypertension Migraines GERD (gastroesophageal reflux disease) Morbid obesity Surgical History (Updated 10/23/24 @ 00:01 by Maryjo Anderson) S/P gastric sleeve procedure History of esophagogastroduodenoscopy (EGD) Hx of dilation and curettage Hx of section Hx of spinal fusion Family History Mother No problems noted. Father No problems noted. Social History Household Members: Spouse Housing: Apartment Are you a primary healthcare translator to a significant other at home: No Do you presently have visiting nurse or other home services: No Alcohol intake: never Patient Tobacco Use Status: Never used Tobacco Telehealth Telehealth Telehealth Platform: Telephone Location of provider rendering services: practice address Location of patient: address on file Patient Identification confirmed using: Name, : Yes Telehealth method: voice only Patient verbally consented to treatment: Yes Patient verbally consented to billing insurance company: Yes Patient informed of any privacy concerns related to visit: Yes Minutes spent on Phone/Video with Pt.: 15 Assessment & Plan Assessment & Plan (1) S/P laparoscopic sleeve gastrectomy: Code(s): Z98.84 - Bariatric surgery status Category: Surgical (2) Obesity: Code(s): E66.9 - Obesity, unspecified Category: Medical Plan Pt stopped taking sucralfate, will increase PPI to BID for the last month of treatment. She will text me later today with preferred protein products she would like to use, and I will create a meal plan for her. We discussed the risks of not following an appropriate meal plan especially this soon after surgery. Also encouraged pt to restart exercise. RTC 02/15 at 9:15am. (pt aware) Medications: New pantoprazole 40 mg PO BID 30 tabs 0RF
[2024-12-25 10:02] VITALS: BMI 36.9
== END 2024-12-25 10:23 | disposition home or self-care (01) ==
PROVIDERS: PCP Nurse Practitioner Family; Visit Provider Physician Assistant Surgical
DX: E66.9 Obesity, unspecified (principal); Z68.36 Body mass index [BMI] 36.0-36.9, adult; Z90.3 Acquired absence of stomach [part of]; Z98.84 Bariatric surgery status
CPT/HCPCS: 99024

== ENCOUNTER 2025-02-15 09:14 | Outpatient (AMB) | payer OTHER, SELFPAY ==
--- NOTE | 2025-02-15 09:29 | A.OFFVIS_ITS ---
VS Expanded 02/15/25 09:36 Height 5 ft 9 in Weight 233 lb 7 oz BMI 34.5 Intake Visit Reasons: Phone - PO LSG 10/14/24 Allergies No Known Allergies Allergy (Verified 10/21/24 11:10) Medication List - Last Reconciled 02/15/25 by NNAMDI Brown cyclobenzaprine 10 mg PO BEDTIME PRN Held on 10/15/24. Instructions: Resume on 10/29/24. doxylamine succinate 25 mg PO BEDTIME PRN rizatriptan 5 mg PO Q2-4H PRN HPI Comments Details: This is a 34 yo F who is s/p LSG 10/14/2024. Presents for 4 mo post op visit. Weight at last visit on 12/25/2024 was 250.2 pounds; weight today is 233.7 pounds, representing a 27.4 pound weight loss with a BMI today of 36.9. Has been off PPI and carafate for about 10 days; occasional mild heartburn. She stopped texting with Dr Gamble. A few weeks after surgery struggled to take in anything and felt he got frustrated. She does feel better over the past few weeks with taking things in. Present meal plan includes: stopped protein drinks and bars because she couldn't tolerate them thinks she can tolerate Fairlife shakes (30g) and wants to try Nuri brand has tried Pure Protein and recently tried Built tries to get 20g protein 3x/day and 10g protein 2x/day from whole foods meals might be solid protein like meat plus veg; 3-4oz meat and 1-2 forks snacks are protein chips, liliana crunch snack mix, ratio yogurts usually gets about 80g protein per day hydration- 80oz estimated Exercise routine includes: has equipment at home [facility] Medical History (Updated 12/25/24 @ 10:08 by NNAMDI Brown) Asthma Arthritis Back pain PCOS (polycystic ovarian syndrome) DJD (degenerative joint disease) Scoliosis Hypertension Migraines GERD (gastroesophageal reflux disease) Morbid obesity Surgical History (Updated 10/23/24 @ 00:01 by Maryjo Anderson) S/P gastric sleeve procedure History of esophagogastroduodenoscopy (EGD) Hx of dilation and curettage Hx of section Hx of spinal fusion Family History Mother No problems noted. Father No problems noted. Social History Household Members: Spouse Housing: Apartment Are you a primary home visit field care manager to a significant other at home: No Do you presently have visiting nurse or other home services: No Alcohol intake: never Patient Tobacco Use Status: Never used Tobacco Telehealth Telehealth Telehealth Platform: Telephone Location of provider rendering services: practice address Location of patient: address on file Patient Identification confirmed using: Name, : Yes Telehealth method: voice only Patient verbally consented to treatment: Yes Patient verbally consented to billing insurance company: Yes Patient informed of any privacy concerns related to visit: Yes Minutes spent on Phone/Video with Pt.: 12 Assessment & Plan Assessment & Plan (1) S/P laparoscopic sleeve gastrectomy: Code(s): Z98.84 - Bariatric surgery status Category: Medical (2) Obesity: Code(s): E66.9 - Obesity, unspecified Category: Medical Plan Discussed that pt may be drinking too much volume considering she is not taking in any protein shakes, needs to slow down pace of drinking and make sure she spaces out drinks and solids. She is not on an ideal meal plan but is not interested in returning to a protein shake based plan. We discussed ways to avoid heartburn like pace of PO intake and avoiding eating/drinking too close to bedtime. Clotrimazole ointment ordered as she reported some rashes of skin folds. Labs at next visit. RTC 2mo. Medications: New clotrimazole 1% 1 appl topical BID 45 grams 3RF
[2025-02-15 09:36] VITALS: BMI 34.5
== END 2025-02-15 09:50 | disposition home or self-care (01) ==
LOC: HO.HBS 09:14
PROVIDERS: PCP Nurse Practitioner Family; Visit Provider Physician Assistant Surgical
DX: E66.811 Obesity, class 1 (principal); Z68.34 Body mass index [BMI] 34.0-34.9, adult; Z90.3 Acquired absence of stomach [part of]; Z98.84 Bariatric surgery status
CPT/HCPCS: 98013